=== PATIENT | male | born 1940 | race Caucasian/White ===

== ENCOUNTER → 2017-04-16 | Outpatient (CLI) | payer MEDICARE ==
[2017-04-16 09:05] LABS: Basophils % (A) 1 %; CH 31.4; CHCM 33.2; Eosinophils # (A) 0.1 k/uL (0-0.7); Eosinophils % (A) 3 %; HCT 41.3 % (39.0-53.0); HDW 2.34; HGB 13.5 gm/dL (13.0-17.5); Luc # (Auto) 0.07; Luc % (Auto) 2; Lymphocytes # (A) 1.6 k/uL (1.0-4.8); Lymphocytes % (A) 38 %; MCH 31.1 pg (25.0-35.0); MCHC 32.7 g/dL (31.0-37.0); MCV 95.1 fL (80.0-100.0); Mean Platelet Volume 7.5; Monocytes # (A) 0.2 k/uL (0-1.0); Monocytes % (A) 5 %; Neutrophils # (A) 2.2 k/uL (1.3-7.7); Neutrophils % (A) 52 %; RBC 4.34 m/uL (4.30-5.90); RDW 14.1 % (11.5-15.5); WBC 4.2 k/uL (3.8-10.6); WBC (Perox) 4.29
[2017-04-16 10:12] LABS: Erythrocyte Sedimentation Rate 7 mm/hr (0-15)
[2017-04-16 10:54] LABS: ALT 43 U/L (21-72); AST 39 U/L (17-59); Alkaline Phosphatase 69 U/L (38-126); Anion Gap 8 mmol/L; Blood Urea Nitrogen 17 mg/dL (9-20); C Reactive Protein <5.0 mg/L (<10.0); Calcium 9.6 mg/dL (8.4-10.2); Carbon Dioxide 30 mmol/L (22-30); Chloride 106 mmol/L (98-107); Glucose 90 mg/dL (74-99); Non-African American GFR(MDRD) >60 (>60 ml/min/1.73 sqM); Potassium 4.6 mmol/L (3.5-5.1); Sodium 144 mmol/L (137-145); Total Bilirubin 0.8 mg/dL (0.2-1.3); Total Protein 6.6 g/dL (6.3-8.2)
== END | disposition home or self-care (01) ==
LOC: LABWHC1 07:50
PROVIDERS: ATTEND Internal Medicine
DX: D64.9 Anemia, unspecified (principal); C15.9 Malignant neoplasm of esophagus, unspecified; E03.9 Hypothyroidism, unspecified; E16.2 Hypoglycemia, unspecified
CPT/HCPCS: 36415; 80053; 84439; 84443; 85025; 85652; 86140

== ENCOUNTER → 2017-04-17 | Outpatient (CLI) | payer MEDICARE ==
[2017-04-17 18:10] LABS: Blood Urea Nitrogen 16 mg/dL (9-20); Non-African American GFR(MDRD) >60 (>60 ml/min/1.73 sqM)
--- NOTE | 2017-04-18 08:21 | CT ---
EXAMINATION TYPE: CT abdomen w con DATE OF EXAM: 04/17/2017 COMPARISON: 07/14/2015 INDICATION: upper abdominal pain x1 month. Hx of esophageal CA. DLP: 328.6 mGycm, Automated exposure control for dose reduction was used. CONTRAST: 100 mL of Omnipaque 300. Study performed with Oral Contrast TECHNIQUE: Axial images were obtained from above the diaphragm to the pubic rami in the axial plane a t 5 mm thick sections. Reconstructed images are reviewed on the computer in the coronal plane. FINDINGS: Limited CT sections are obtained the lung bases. There is some streak opacity in the posterior later al right lung base likely on the basis of atelectasis. There appears to be a colonic interposition pa rtially visualized at the lung base. Coronary artery calcification is present.. CT ABDOMEN: Liver: There is a 0.7 cm hypodensity within the superior right lobe liver was present previously may represent hepatic cyst. Subtle hypodensity is within the posterior right lobe liver not clearly ident ified previously and is too small to classify on the current exam. There is an area of enhancement es timated at 1.0 x 2.9 cm in size. This area is smaller than the comparison of 3.0 x 1.7 cm. Spleen: Large calcification is within the spleen. 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 Pancreas: Slightly atrophic. Adrenal glands: The adrenal glands are normal. Gallbladder: Surgically absent Kidneys: No masses are evident. No hydronephrosis is present. There is a 4.1 cm superior right cezar l cyst. A superior pole left renal cyst measuring 2.6 cm is present. Punctate calcification may be w ithin the superior pole left kidney without evidence of obstruction. Delayed images were obtained th rough the kidneys, which remain unremarkable. Aorta: Vascular calcification is within the aorta. Inferior vena cava: Normal. CT PELVIS: Loops of bowel within the abdomen and pelvis are normal. There are loops of bowel which are incom pletely distended or lack oral contrast limiting their evaluation. IMPRESSIONS: 1. Renal cysts. 2. Stable calcified aneurysm within the spleen. 3. Subtle new hypodense density within the right lobe liver too small to classify. Additional hepatic findings appears similar or diminished in size from prior exam.
== END ==
LOC: RADCTMAIN 17:26
PROVIDERS: ATTEND Internal Medicine
DX: N28.1 Cyst of kidney, acquired (principal); I72.8 Aneurysm of other specified arteries
CPT/HCPCS: 82565; 84520; 74160; 36415; Q9967

== ENCOUNTER → 2017-05-20 | Outpatient (CLI) | payer MEDICARE ==
--- NOTE | 2017-05-20 17:46 | XR ---
EXAMINATION TYPE: XR sinus DATE OF EXAM: 05/20/2017 COMPARISON: NONE HISTORY: Headache TECHNIQUE: 5 views FINDINGS: There is fairly normal development and aeration of the paranasal sinuses. Sella turcica starla ears normal. Orbital margins are intact. Maxilla is intact. IMPRESSION: Normal paranasal sinuses exam.
== END | disposition home or self-care (01) ==
LOC: RADXRMAIN 16:39
PROVIDERS: ATTEND Internal Medicine
DX: J32.9 Chronic sinusitis, unspecified (principal); R51 Headache
CPT/HCPCS: 70220

== ENCOUNTER 2017-06-20 11:08 | Day surgery (SDC) | payer MEDICARE ==
[2017-06-19 12:21] VITALS: BMI 21.1
[~2017-06-20 11:08] MED LIST: LACTATED RINGERS 1,000 ML IV SCH
[2017-06-20 11:55] VITALS: RESP 16; TEMP 97.9
[2017-06-20] MEDS ORDERED: LIDOCAINE 1% 20 ML VIAL (10MG/ML) FOR IV START INTRADERMA ONE (12:04)
[2017-06-20 12:07] LABS: Glucose,Whole Blood 83 mg/dL (75-99)
[2017-06-20] MEDS ORDERED: PROPOFOL 10 MG/ML 20 ML VIAL IV ONE (12:40)
--- NOTE | 2017-06-20 12:50 | P.PCN ---
Date of Procedure: 06/20/17 Preoperative Diagnosis: Postoperative Diagnosis: Procedure(s) Performed: BRIEF HISTORY: Patient is a 76-year-old, pleasant, male, scheduled for an upper endoscopy as a part of evaluation of epigastric pain, early satiety and intermittent passive regurgitation for the last 4 months duration. 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 Because of the persistent symptoms he scheduled for an upper endoscopy to evaluate. PROCEDURE PERFORMED: Esophagogastroduodenoscopy with biopsy. PREOPERATIVE DIAGNOSIS: Epigastric pain, early satiety and nausea for 4 months duration. IV sedation per anesthesia. PROCEDURE: After informed consent was obtained, the patient was brought into the endoscopy unit. IV sedation was administered by Anesthesia under continuous monitoring. Initially the Olympus GIF-140 video endoscope was inserted into the mouth. Esophagus intubated without any difficulty. It was gradually advanced and the gastroesophageal anastomosis was located at 25 cm from the incisors. The scope was advanced into the stomach and duodenum. The bulb and the second part of the duodenum appeared normal. The scope at this time was withdrawn to the stomach, adequately insufflated with air, and upon careful examination, mucosa of the antrum had mild mottling of the mucosa and biopsies were done from this area. The, body appeared normal. The scope was then withdrawn into the esophagus. The GE anastomosis was located at 25 from the incisors. There was a superficial erosion with exudate noted just proximal to the anastomosis. The rest of the esophagus appeared normal and the patient tolerated the procedure well. IMPRESSION: 1. Superficial erosions at the gastroesophageal anastomosis consistent with reflux esophagitis. 2. Mild antral gastritis. 3. No evidence of gastroparesis RECOMMENDATIONS: The findings of this examination were discussed with the patient as well as his family. He was advised to follow with the biopsy results. Will try him on Zantac 150 minute grams twice daily and he'll be seen in the office in 4 weeks. Implants: Indications for Procedure: Operative Findings: Description of Procedure:
[2017-06-20 13:18] VITALS: BP 110/70; PULSE 49
== END 2017-06-20 13:27 | disposition home or self-care (01) ==
LOC: ORWHC2ENDO 11:08
PROVIDERS: ATTEND Internal Medicine Gastroenterology
DX: K29.50 Unspecified chronic gastritis without bleeding (principal); K22.10 Ulcer of esophagus without bleeding; K21.0 Gastro-esophageal reflux disease with esophagitis; R68.81 Early satiety; Z85.01 Personal history of malignant neoplasm of esophagus; Z90.49 Acquired absence of other specified parts of digestive tract; E07.9 Disorder of thyroid, unspecified; N42.9 Disorder of prostate, unspecified; F41.9 Anxiety disorder, unspecified; I25.10 Atherosclerotic heart disease of native coronary artery without angina pectoris; J44.9 Chronic obstructive pulmonary disease, unspecified; M19.90 Unspecified osteoarthritis, unspecified site; Z79.899 Other long term (current) drug therapy; Z88.5 Allergy status to narcotic agent; Z87.891 Personal history of nicotine dependence
CPT/HCPCS: 88305; 88342; 43239; J2704

== ENCOUNTER 2017-12-05 16:12 | Outpatient (CLI) | payer MEDICARE ==
--- NOTE | 2017-12-05 16:55 | XR ---
EXAMINATION TYPE: XR chest 2V DATE OF EXAM: 12/05/2017 COMPARISON: 01/12/2016 HISTORY: Cough TECHNIQUE: Frontal and lateral views of the chest are obtained. FINDINGS: There is no heart failure. There is some mild reticular infiltrate in the lateral right lo wer lobe. The other lung cooney are clear. Thoracic aorta is atheromatous. There are no hilar masses. There is no pleural effusion. Bony thorax is intact. IMPRESSION: Minimal reticular infiltrate in the right lower lobe is increased compared to old exam a nd could relate to fibrosis. Normal heart.
[2017-12-05 16:57] LABS: Basophils % (A) 0 %; Eosinophils # (A) 0.1 k/uL (0-0.7); Eosinophils % (A) 2 %; HCT 39.6 % (39.0-53.0); HGB 12.4 gm/dL (13.0-17.5); Lymphocytes # (A) 1.3 k/uL (1.0-4.8); Lymphocytes % (A) 19 %; MCH 30.8 pg (25.0-35.0); MCHC 31.2 g/dL (31.0-37.0); MCV 98.7 fL (80.0-100.0); Mean Platelet Volume 7.2; Monocytes # (A) 0.5 k/uL (0-1.0); Monocytes % (A) 7 %; Neutrophils % (A) 71 %; Platelet Count 230 k/uL (150-450); RBC 4.01 m/uL (4.30-5.90); RDW 13.9 % (11.5-15.5)
== END 2017-12-05 17:10 | disposition home or self-care (01) ==
LOC: PEDOP 16:12
PROVIDERS: ATTEND Internal Medicine
DX: J44.9 Chronic obstructive pulmonary disease, unspecified (principal); J12.9 Viral pneumonia, unspecified; J06.9 Acute upper respiratory infection, unspecified; J32.9 Chronic sinusitis, unspecified; R05 Cough
CPT/HCPCS: 85025; 87502; 71046; G0463; 99212

== ENCOUNTER → 2018-02-18 | Outpatient (CLI) | payer MEDICARE ==
[2018-02-18 12:46] LABS: Blood Urea Nitrogen 19 mg/dL (9-20)
--- NOTE | 2018-02-18 14:35 | CT ---
EXAMINATION TYPE: CT abdomen pelvis w con DATE OF EXAM: 02/18/2018 COMPARISON: 04/17/2017 HISTORY: Epigastric and generalized abdominal pain CT DLP: 569.2 mGycm Automated exposure control for dose reduction was used. CONTRAST: CT scan of the abdomen pelvis is performed with IV Contrast, patient injected with 100 mL of Isovue 3 00. FINDINGS- LUNG BASES-changes of COPD are noted. Subsegmental changes at the right lung base suggestive of atele ctasis. The heart is enlarged. LIVER/GB- There is a 0.7 cm hypodensity within the superior right lobe liver was present previously may represent hepatic cyst. Subtle hypodensity is within the posterior right lobe liver not clearly identified previously and is too small to classify on the current exam. There is an area of enhanceme nt estimated at 1.0 x 2.9 cm in size. This area is smaller than the comparison of 3.0 x 1.7 cm. PANCREAS- No gross abnormality is seen. SPLEEN- Large calcification is within the spleen. Stable calcified cyst is likely present. ADRENALS- No gross abnormality is seen. KIDNEYS/BLADDER- No masses are evident. No hydronephrosis is present. There is a 4.1 cm superior righ t renal cyst. A superior pole left renal cyst measuring 2.6 cm is present. Punctate calcification may be within the superior pole left kidney without evidence of obstruction. Delayed images were obtaine d through the kidneys, which remain unremarkable. Lateral wall is thickened. BOWEL-the bowel gas pattern is nonspecific with extensive retained fecal debris throughout the colon. No obstruction. Appears to be previous surgery involving the stomach and esophagus correlate clinica lly. This area is somewhat decompressed and limited in evaluation. LYMPH NODES- No greater than 1cm abdominal or pelvic lymph nodes are appreciated. OSSEOUS STRUCTURES-multilevel hypertrophic and degenerative disc disease with facet arthropathy. OTHER- atherosclerotic change of the vasculature. Prostate gland is prominent. IMPRESSION- 1. Stable nonspecific hepatic lesions unchanged from the prior exam. 2. Stable renal cysts. 3. Postsurgical changes 4. Assessment of the postsurgical area is somewhat limited due to incomplete distention. This could b e correlated with direct visualization or upper GI exam if clinically warranted. 5. Correlate for chronic cystitis diffuse bladder wall thickening.
== END | disposition home or self-care (01) ==
LOC: RADCTMAIN 12:01
PROVIDERS: ATTEND Internal Medicine Gastroenterology
DX: N28.1 Cyst of kidney, acquired (principal); R10.13 Epigastric pain; Z98.890 Other specified postprocedural states
CPT/HCPCS: 82565; 84520; 74177; 36415; Q9967

== ENCOUNTER → 2018-11-05 | Outpatient (CLI) | payer MEDICARE ==
--- NOTE | 2018-11-06 08:36 | XR ---
EXAMINATION TYPE: XR chest 2V DATE OF EXAM: 11/05/2018 COMPARISON: 12/05/2017 TECHNIQUE: PA and lateral views submitted. HISTORY: Pain FINDINGS: Atherosclerotic change aorta. Pleural-based thickening calcified nodule. Prominent interstitial maikol ngs at the lung bases likely reflect a degree of underlying interstitial lung disease. Calcification left upper quadrant is stable surgical clips in the region. Heart size normal. IMPRESSION: 1. COPD with suspected chronic interstitial lung disease. Suspect granuloma pleural apical thickening bilaterally. Findings are stable.
--- NOTE | 2018-11-06 08:42 | XR ---
EXAMINATION TYPE: XR ribs RT DATE OF EXAM: 11/05/2018 COMPARISON: NONE HISTORY: Pain TECHNIQUE: 4 views submitted FINDINGS: Arthropathy shoulders seen. Visualized lung cooney clear with slight deformity involving th e anterolateral margin the right ninth rib suspicious for minimally displaced fracture surgical clip s in the abdomen noted. IMPRESSION: 1. Findings are suggestive of a displaced fracture involving the anterolateral right ninth rib.
== END ==
LOC: RADXRMAIN 16:46
PROVIDERS: ATTEND Internal Medicine
DX: J44.9 Chronic obstructive pulmonary disease, unspecified (principal)
CPT/HCPCS: 71046

== ENCOUNTER → 2019-02-05 | Outpatient (CLI) | payer MEDICARE ==
--- NOTE | 2019-02-05 18:26 | CT ---
EXAMINATION TYPE: CT abdomen pelvis w con DATE OF EXAM: 02/05/2019 COMPARISON: 02/18/2018 INDICATION: abdominal pain and nausea, hx of esophageal ca DLP: 557.1 mGycm, Automated exposure control for dose reduction was used. CONTRAST: 100 mL of Isovue 300. Study performed with Oral Contrast TECHNIQUE: Axial images were obtained from above the diaphragm to the pubic rami in the axial plane a t 5 mm thick sections. Reconstructed images are reviewed on the computer in the coronal plane. FINDINGS: Limited CT sections are obtained the lung bases. There is a stable oval density within the posterior lateral right lung base.. CT ABDOMEN: There is a gastric pull-through. Contrast is within the intrathoracic portion of the stom ach. Liver: There is an area of enhancement measuring 3.5 x 1.7 cm which is stable from comparison. No add itional masses are evident. Couple of very tiny hypodensities are in the superior right lobe liver pr esent previously may be tiny hepatic cysts. Spleen: There is a stable rounded calcification within the mid spleen. Pancreas: Atrophic Adrenal glands: The adrenal glands are normal. Gallbladder: Surgically absent Kidneys: No masses are evident. No hydronephrosis is present. There is a cyst measuring 4.9 cm and 9 Hounsfield units in the superior right kidney the posterior superior renal cyst is on the left jose cruz suring 2 cm and 11 Hounsfield units Aorta: Vascular calcification is within the aorta. Inferior vena cava: Normal. CT PELVIS: Loops of bowel within the abdomen and pelvis are normal. There are loops of bowel which are incom pletely distended or lack oral contrast limiting their evaluation. Appendix: Not identified. No suspicious tubular structures are identified. Lack of fat makes evaluati on for inflammatory change difficult. Urinary bladder: Normal. Genitourinary structures: Prostate appears unremarkable Osseous structures: Sacroiliac joint degenerative changes are present. Degenerative disc changes are present L4-5 L5-S1 COMPARISON: Findings appear stable over the interval. No suspicious interval change to account for e patient's symptoms is evident. IMPRESSIONS: 1. Stable examination from March 08, 2018. No suspicious changes to suggest metastatic disease or samuels ge in disease. 2. Scattered findings including hepatic and renal findings appear stable.
== END | disposition home or self-care (01) ==
LOC: RADCTMAIN 14:50
PROVIDERS: ATTEND Internal Medicine Gastroenterology
DX: R10.13 Epigastric pain (principal)
CPT/HCPCS: 82565; 84520; 74177; 36415; Q9967

== ENCOUNTER → 2019-02-12 | Day surgery (SDC) | payer MEDICARE ==
[2019-02-09 09:43] VITALS: BMI 21.7
[~2019-02-12] MED LIST changes: +LIDOCAINE 1% 20 ML VIAL (10MG/ML) FOR IV START INTRADERMA ONE; +LIDOCAINE 1% INJ 10MG/ML (20 ML MDV) ONE; +PROPOFOL 10 MG/ML 20 ML VIAL IV ONE
[2019-02-12 09:33] VITALS: TEMP 97.3
--- NOTE | 2019-02-12 11:23 | P.PCN ---
Date of Procedure: 02/12/19 Procedure(s) Performed: Brief history: Patient is a pleasant 78-year-old white female, scheduled for an elective upper endoscopy as well as colonoscopy as a part of evaluation of epigastric pain, occasional dysphagia to solids and prior history of colon polyps.. He has history of esophageal cancer for which she underwent distal esophagectomy in June 2015. Procedure performed: Esophagogastroduodenoscopy with biopsy Colonoscopy Preoperative diagnosis: Epigastric pain, intermittent dysphagia to solids History of colon polyps Anesthesia: MAC Procedure: After informed consent was obtained from the patient was brought into the endoscopy unit and IV sedation was administered by anesthesia under continuous monitoring. Initially upper endoscopy was done. The Olympus GF 160 video endoscope was inserted inserted into the mouth and esophagus intubated without any difficulty. The gastric esophageal anastomosis was located at 25 cm from the incisors and was widely patent. The scope at this time was gradually advanced into the stomach and duodenum and carefully examined. The bulb and second part of the duodenum appeared normal. The scope was then withdrawn into the stomach adequately insufflated with air and upon careful examination the antrum had diffuse gastritis and biopsies were from this area. The body, cardia and fundus appeared normal. The scope was then withdrawn into the esophagus. The anastomosis was located at 25 cm from the incisors and it does ulcerations noted. In the proximal cervical esophagus at 18 cm from the anal verge there was an inlet patch noted which was also biopsied. Rest of the esophagus appeared normal. Patient tolerated the procedure well. At this time the patient continued to remain sedation. Initial digital rectal examination was normal. Olympus CF 160 video colonoscope was then inserted into the rectum and gradually advanced to the cecum without any difficulty. Careful examination was performed as the scope was gradually being withdrawn. The prep was poor and several areas of the colon and thorough irrigation was performed using irrigation system.e cecum, ascending colon, transverse colon, descending colon, sigmoid colon and rectum appeared normal. moderate Diverticulosis seen. Retroflexion was performed in the rectum and no lesions were noted. Patient tolerated the procedure well. Impression: 1. Upper endoscopy revealed circumferential ulcerations at the gastroesophageal anastomosis but no evidence of stricture 2. Colonoscopy revealed somewhat poor prep and several areas of colon but no evidence of colorectal neoplasia. Scattered small diverticulosis seen. Recommendations: Findings of this examination were discussed with the patient as well as his family. He was advised to follow with the biopsy results. He will start on Prilosec 20 mg daily and follow with the biopsy results.
[2019-02-12 11:27] VITALS: BP 115/62; PULSE 47; RESP 17
== END | disposition home or self-care (01) ==
LOC: ORWHC2ENDO 09:18
PROVIDERS: ATTEND Internal Medicine Gastroenterology
DX: Z12.11 Encounter for screening for malignant neoplasm of colon (principal); K29.50 Unspecified chronic gastritis without bleeding; K57.30 Diverticulosis of large intestine without perforation or abscess without bleeding; K21.0 Gastro-esophageal reflux disease with esophagitis; K22.10 Ulcer of esophagus without bleeding; J44.9 Chronic obstructive pulmonary disease, unspecified; I25.2 Old myocardial infarction; I25.10 Atherosclerotic heart disease of native coronary artery without angina pectoris; Z87.891 Personal history of nicotine dependence; Z86.010 Personal history of colon polyps; Z85.01 Personal history of malignant neoplasm of esophagus; Z79.890 Hormone replacement therapy; Z90.49 Acquired absence of other specified parts of digestive tract; Z79.899 Other long term (current) drug therapy; Z88.5 Allergy status to narcotic agent
CPT/HCPCS: 88305; 43239; J2001; J2704; G0105

== ENCOUNTER → 2019-05-14 | Outpatient (CLI) | payer MEDICARE ==
[2019-05-14 07:46] LABS: Basophils % (A) 1 %; Eosinophils # (A) 0.1 k/uL (0-0.7); Eosinophils % (A) 3 %; HGB 12.1 gm/dL (13.0-17.5); Lymphocytes # (A) 1.4 k/uL (1.0-4.8); Lymphocytes % (A) 35 %; MCH 30.3 pg (25.0-35.0); MCHC 31.9 g/dL (31.0-37.0); MCV 94.8 fL (80.0-100.0); Mean Platelet Volume 7.5; Monocytes # (A) 0.2 k/uL (0-1.0); Monocytes % (A) 5 %; Neutrophils # (A) 2.1 k/uL (1.3-7.7); Neutrophils % (A) 54 %; Platelet Count 184 k/uL (150-450); RDW 14.3 % (11.5-15.5); WBC 3.8 k/uL (3.8-10.6)
[2019-05-14 08:10] LABS: ALT 26 U/L (21-72); AST 30 U/L (17-59); African American GFR (CKD) >90 (>60 ml/min/1.73 sqM); Albumin 3.8 g/dL (3.5-5.0); Alkaline Phosphatase 62 U/L (38-126); Amylase 59 U/L (30-110); Anion Gap 3 mmol/L; Blood Urea Nitrogen 21 mg/dL (9-20); Calcium 9.1 mg/dL (8.4-10.2); Carbon Dioxide 30 mmol/L (22-30); Chloride 107 mmol/L (98-107); Glucose 91 mg/dL (74-99); Phosphorus 4.5 mg/dL (2.5-4.5); Potassium 4.6 mmol/L (3.5-5.1); Sodium 140 mmol/L (137-145); Total Bilirubin 0.5 mg/dL (0.2-1.3); Total Protein 6.3 g/dL (6.3-8.2)
--- NOTE | 2019-05-14 08:22 | US ---
EXAMINATION TYPE: US abdomen complete DATE OF EXAM: 05/14/2019 COMPARISON: 02/05/2019 CLINICAL HISTORY: R10.9 ABDOMINAL PAIN. Pain cholecystectomy. EXAM MEASUREMENTS: Liver Length: 15.1 cm Gallbladder Wall: Surgically absent cm CBD: 0.5 cm Spleen: 9.5 cm Right Kidney: 9.8 x 4.6 x 5.5 cm Left Kidney: 9.2 x 4.2 x 4.9 cm Pancreas: Obscured by bowel gas Liver: wnl Gallbladder: Surgically absent Evidence for sonographic Perez's sign: No CBD: wnl Spleen: Calcification seen measuring 2.2cm. Right Kidney: Cystic area seen upper pole 4.4 x 4.2 x 4.7cm. No internal complexity. Left Kidney: Cystic area seen upper pole 2.3 x 1.6 x 1.8cm. No internal complexity. Upper IVC: wnl Abd Aorta: Proximal obscured by bowel gas areas visualized wnl. The liver is homogenous. The intrahepatic portion of the IVC and proximal abdominal aorta are within normal limits. Common bile duct is unremarkable. Kidneys are symmetric and free of hydronephrosis. IMPRESSION: 1. Bilateral renal cysts appear simple and benign. 2. Curvilinear splenic calcification also appears benign. 3. Surgical absence of the gallbladder. 4. Obscuration the pancreas and proximal aorta by overlying bowel gas.
[2019-05-14 10:14] LABS: C Reactive Protein <5.0 mg/L (<10.0)
[2019-05-14 12:10] LABS: Folate, Serum 12.7 ng/mL
== END | disposition home or self-care (01) ==
LOC: RADUSWWP 06:59
PROVIDERS: ATTEND Internal Medicine
DX: N28.1 Cyst of kidney, acquired (principal); D73.89 Other diseases of spleen; Z88.5 Allergy status to narcotic agent; Z90.49 Acquired absence of other specified parts of digestive tract
CPT/HCPCS: 76700; 80053; 82150; 82607; 82746; 83690; 83735; 84100; 85025; 86140

== ENCOUNTER → 2020-06-12 | Outpatient (CLI) | payer MEDICARE ==
--- NOTE | 2020-06-13 08:23 | MR ---
EXAMINATION TYPE: MR pancreas wo/w con DATE OF EXAM: 06/12/2020 COMPARISON: Outside CT May 18, 2020 and older CTs back through 2014 HISTORY: Abnormal CT, cystic lesion of pancreas. CONTRAST: Standard multiplanar, multisequence MRI departmental protocol utilizing 7 mL intravenous Gadavist abdias olinium contrast. FINDINGS: Patient has virtually no intra-abdominal fat making evaluation suboptimal. Pancreas: Pancreas poorly seen due to lack of internal fat. In the mid to distal body there is redemo nstration of a slightly lobulated T2 hyperintense lesion measuring 1.5 x 0.9 cm seen best series 601 image 23 that may have been first identified on the February 18, 2018 CT in retrospect, not clearly seen on older studies back through 2014. It appears to continue to Slightly increase in size from 2018. Dynamic postcontrast imaging shows no convincing evidence of enh ancement the lesion is not well identified and likely is present near image 398 series 801 for refere nce and best seen image 400 series 801. Pancreatic duct is seen proximal to this without dilatation s imilar to prior studies. The distal body and tail show mild generalized atrophy seen better on CT jackson jelena MRI. MRI suboptimal as patient unable to hold breath. Other: There are a few tiny thin-walled cysts scattered throughout the visualized liver. Gallbladder noted surgically absent. There is stable 2.1 cm rim calcified lesion in the spleen presumably benign. There is nearly 4.0 cm thin-walled cyst within. The partially exophytic from the upper pole of right kidney redemonstrated. No suspicious enhancement noted. Occasional tiny subcentimeter cyst is scatte red throughout remainder of both kidneys. No suspicious bowel dilatation. Large hemangioma involving the T3 vertebra redemonstrated. Multilevel spurring in the spine seen. IMPRESSION: Enlarging 1.5 cm cystic lesion mid to distal body of pancreas. Differential includes cyst ic neoplasm, IPMN, and pancreatic pseudocyst. Correlate clinically and with pancreatic lab markers. A t minimal annual imaging surveillance is advised.
== END | disposition home or self-care (01) ==
LOC: RADMRIMAIN 17:09
PROVIDERS: ATTEND Internal Medicine Gastroenterology
DX: K86.2 Cyst of pancreas (principal)
CPT/HCPCS: 74183; A9585

== ENCOUNTER → 2020-11-17 | Outpatient (CLI) | payer MEDICARE ==
--- NOTE | 2020-11-18 00:25 | MR ---
EXAMINATION TYPE: MR brain wo/w con DATE OF EXAM: 11/17/2020 COMPARISON: 07/22/2016 HISTORY: Hx Brain Tumor and Brain surgery in 2016 CONTRAST: Standard multiplanar, multisequence MRI departmental protocol utilizing 7.5 mL intravenous Gadavist g adolinium contrast. There is cerebral cortical atrophy. There is no mass effect nor midline shift. The diffusion images s how no evidence of an acute cortical infarct. There is grade white matter increased signal on the T2 images in the right posterior parietal lobe consistent with old encephalomalacia. This measures 3 x 2 cm. There is patchy abnormal increased signal at the reyes-white matter junction of both cerebral hem ispheres. There are numerous foci that measure up to 1 cm and the total number is approximately 25. M ost of these lesions are less than 5 mm. The carpus callosum appears intact. There is no evidence of posterior fossa mass. Cerebellum is intact. Contrast images show no pathologic enhancement. There is normal enhancement of the venous sinuses. 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 Cerebral atrophy unchanged. White matte r lesions at the subcortical Cerebral hemispheres unchanged. No sign of recurrent tumor in this isabelle ent with a history of brain tumor. No evidence of brain abscess.
== END | disposition home or self-care (01) ==
LOC: RADMRIMAIN 17:58
PROVIDERS: ATTEND Psychiatry & Neurology Neurology
DX: G31.9 Degenerative disease of nervous system, unspecified (principal); G93.89 Other specified disorders of brain; C71.9 Malignant neoplasm of brain, unspecified
CPT/HCPCS: 70553; A9585

== ENCOUNTER → 2021-03-17 | Outpatient (CLI) | payer MEDICARE ==
--- NOTE | 2021-03-18 05:41 | MR ---
EXAMINATION TYPE: MR MRCP DATE OF EXAM: 03/17/2021 COMPARISON: 06/12/2020 HISTORY: pancreatic cyst Multiplanar multiecho images of the abdomen was performed without contrast. There are MRCP images. There are scattered rounded high signal foci on the T2 images in the liver consistent with multiple s mall cysts. These measure up to 9 mm. Spleen has normal size. There is rounded area of mixed signal i n the spleen measuring 2.5 cm. There is a ring of calcification and this is not changed in size beatriz red to old CT scan of 05/18/2020. There are bilateral renal cortical cysts and the largest measures 4. 8 cm on the upper pole right kidney. There is no hydronephrosis. There are 2 small cysts in the body of the pancreas that measure 7 mm. I see no dilated ducts. The co mmon bile duct measures 6.5 mm. I see no evidence of filling defect. Gallbladder is absent. Pancreati c duct is not dilated. There is normal enhancement of the portal venous system. There is no pathologi c enhancement. There is no ascites. There is no evidence of pleural effusion. IMPRESSION: Hepatic and renal cysts. No dilated ducts. There are 2 small cysts adjacent to each other in the body of the pancreas without change compared to old MR scan. No suspicious pancreatic mass.
== END | disposition home or self-care (01) ==
LOC: RADMRIMAIN 10:28
PROVIDERS: ATTEND Physician Assistant
DX: N28.1 Cyst of kidney, acquired (principal); K86.2 Cyst of pancreas; K76.89 Other specified diseases of liver
CPT/HCPCS: 74181

== ENCOUNTER → 2021-04-18 | Outpatient (CLI) | payer MEDICARE ==
--- NOTE | 2021-04-18 13:47 | XR ---
EXAMINATION TYPE: XR chest 2V DATE OF EXAM: 04/18/2021 COMPARISON: 11/05/2018 TECHNIQUE: PA and lateral views submitted. HISTORY: Shortness of breath FINDINGS: The lungs are clear and there is no pneumothorax, pleural effusion, or focal pneumonia. Calcificati ons in the left upper lobe laterally. Question of a hiatal hernia. Surgical clips in the abdomen. Hyp ertrophic and degenerative change of the spine. Hyperinflation suggests COPD. Diffuse osteopenia with arthropathy of the shoulders. Large calcification left upper quadrant is noted by previous CAT scan to be a calcified splenic lesion. IMPRESSION: 1. No acute process. Correlate for COPD.
[2021-04-18 18:53] LABS: Basophils # (A) 0.03 X 10*3/uL (0.00-0.10); Basophils % (A) 0.6 %; Eosinophils # (A) 0.17 X 10*3/uL (0.04-0.35); Eosinophils % (A) 3.4 %; HCT 37.2 % (39.6-50.0); HGB 11.9 g/dL (13.0-17.0); Lymphocytes # (A) 1.19 X 10*3/uL (0.90-5.00); Lymphocytes % (A) 23.8 %; MCH 30.7 pg (27.0-32.0); MCV 96.1 fL (80.0-97.0); Mean Platelet Volume 11.8 fL (9.5-12.2); Monocytes # (A) 0.35 X 10*3/uL (0.20-1.00); Neutrophils # (A) 3.26 X 10*3/uL (1.80-7.70); Neutrophils % (A) 65.2 %; Platelet Count 182 X 10*3/uL (140-440); RBC 3.87 X 10*6/uL (4.40-5.60); RDW 14.9 % (11.5-14.5)
== END | disposition home or self-care (01) ==
LOC: LABWHC1 13:02
PROVIDERS: ATTEND Internal Medicine
DX: J44.9 Chronic obstructive pulmonary disease, unspecified (principal)
CPT/HCPCS: 36415; 71046; 85025

== ENCOUNTER → 2021-04-19 | Outpatient (CLI) | payer MEDICARE ==
[2021-04-19 16:45] LABS: ALT 19 U/L (10-49); AST 31 U/L (14-35); African American GFR (CKD) 96.4 (60.0-200.0); Albumin/Globulin Ratio 1.86 (1.60-3.17); Alkaline Phosphatase 67 U/L (41-126); BUN/Creat Ratio 28.75 Ratio (12.00-20.00); C Reactive Protein <0.4 mg/dL (0.0-0.8); Calcium 8.8 mg/dL (8.7-10.3); Carbon Dioxide 26.9 mmol/L (21.6-31.8); Chloride 110 mmol/L (96-109); Chol/HDL Ratio 2.37; Cholesterol 159 mg/dL (0-200); Creatine Kinase 178 U/L (35-257); Globulin 2.1 g/dL (1.6-3.3); Glucose 89 mg/dL (70-110); LDL Cholesterol,Calculated 81.4 mg/dL (0.0-131.0); Non-African American GFR(CKD) 83.2 (60.0-200.0); Potassium 4.5 mmol/L (3.5-5.5); Sodium 142 mmol/L (135-145); Total Bilirubin 0.6 mg/dL (0.2-1.2)
== END | disposition home or self-care (01) ==
LOC: LABWHC1 08:37
PROVIDERS: ATTEND Internal Medicine
DX: C15.5 Malignant neoplasm of lower third of esophagus (principal); E78.5 Hyperlipidemia, unspecified; J44.9 Chronic obstructive pulmonary disease, unspecified
CPT/HCPCS: 36415; 80053; 80061; 82550; 85652; 86140

== ENCOUNTER → 2021-05-21 | Outpatient (CLI) | payer MEDICARE ==
[2021-05-21 14:24] LABS: African American GFR (CKD) >90 (>60 ml/min/1.73 sqM); Blood Urea Nitrogen 22 mg/dL (9-20); Non-African American GFR(CKD) 84 (>60 ml/min/1.73 sqM)
--- NOTE | 2021-05-21 16:56 | CT ---
EXAMINATION TYPE: CT abdomen pelvis w con DATE OF EXAM: 05/21/2021 COMPARISON: 02/05/2019 INDICATION: RLQ pain DLP: 1027 mGycm, Automated exposure control for dose reduction was used. CONTRAST: 100 mL of Isovue 300. Study performed with Oral Contrast TECHNIQUE: Axial images were obtained from above the diaphragm to the pubic rami in the axial plane a t 5 mm thick sections. Reconstructed images are reviewed on the computer in the coronal plane. FINDINGS: Limited CT sections are obtained the lung bases. There is a moderate size hiatal hernia or gastric p ull-through. Some streak opacities in the posterior lateral right lung base present previously. This currently has a transverse dimension 0.8 cm which is essentially stable from comparison. CT ABDOMEN: Liver: A 2.2 x 1.0 cm area of enhancement within the right lobe liver may be a hemangioma. Series 3 i mage 24. This area appears homogenous on delayed images. There are scattered tiny hypodensities withi n the liver likely related to hepatic cysts. Spleen: There is a 2.6 cm splenic aneurysm present previously. Pancreas: Atrophic Adrenal glands: The adrenal glands are normal. Gallbladder: Surgically absent Kidneys: No masses are evident. No hydronephrosis is present. There is a 4.8 cm cyst measuring 4 Ho unsfield units in the superior pole right kidney. There is a 0.3 cm nonobstructing renal stone in the superior pole left kidney. The superior pole left renal cyst measuring 2.0 cm and 13 Hounsfield uni ts is present. Delayed images were obtained through the kidneys. Small cortical renal cysts are at i nferior pole right kidney. Aorta: Vascular calcification is within the aorta. Fusiform prominence of the mid abdominal aorta me asures 2.5 cm. Inferior vena cava: Normal. CT PELVIS: Loops of bowel within the abdomen and pelvis are normal. Fecal debris is seen in the colon. There are loops of bowel which are incompletely distended or lack oral contrast limiting their evaluation. Appendix: Not identified. No dilated tubular structure or inflammatory changes are evident. Urinary bladder: May have diffusely thickened wall. Genitourinary structures: Mildly prominent Osseous structures: No suspicious lytic or sclerotic lesions. Degenerative changes within the lumbar spine are noted. Degenerative disc changes are present. IMPRESSIONS: 1. Hepatic and renal cysts. 2. Suspected hemangioma within the liver. 3. Nonobstructing renal stone left kidney. 4. Mild fecal retention. 5. Stable splenic aneurysm. 6. Minimal fusiform prominence mid abdominal aorta with AP diameter of 2.5 cm. 7. Urinary bladder may have a diffusely thickened wall. Consider additional workup.
== END | disposition home or self-care (01) ==
LOC: RADCTMAIN 13:27
PROVIDERS: ATTEND Internal Medicine
DX: N20.0 Calculus of kidney (principal); N28.1 Cyst of kidney, acquired; K76.89 Other specified diseases of liver; I72.8 Aneurysm of other specified arteries
CPT/HCPCS: 82565; 84520; 74177; 36415; Q9967

== ENCOUNTER → 2021-06-28 | Outpatient (CLI) | payer MEDICARE ==
--- NOTE | 2021-06-28 15:39 | XR ---
EXAMINATION TYPE: XR chest 2V DATE OF EXAM: 06/28/2021 COMPARISON: 04/18/2021 TECHNIQUE: PA and lateral views submitted. HISTORY: Shortness of breath FINDINGS: The lungs are clear and there is no pneumothorax, pleural effusion, or focal pneumonia. Hyperinflat ion compatible COPD. Biapical pleural thickening. Calcification involving the left upper lobe likely related to granuloma. Atherosclerotic change aorta. Degenerative change of the spine with scoliosis. IMPRESSION: 1. No acute process. Correlate for COPD.
== END | disposition home or self-care (01) ==
LOC: RADXRWHC 14:44
PROVIDERS: ATTEND Internal Medicine
DX: R06.02 Shortness of breath (principal)
CPT/HCPCS: 71046

== ENCOUNTER → 2021-07-06 | Outpatient (CLI) | payer MEDICARE ==
[2021-07-06 23:11] LABS: Basophils # (A) 0.04 X 10*3/uL (0.00-0.10); Basophils % (A) 0.9 %; Eosinophils # (A) 0.09 X 10*3/uL (0.04-0.35); Eosinophils % (A) 1.9 %; HCT 36.5 % (39.6-50.0); HGB 11.6 g/dL (13.0-17.0); Lymphocytes # (A) 1.27 X 10*3/uL (0.90-5.00); Lymphocytes % (A) 27.3 %; MCH 30.4 pg (27.0-32.0); MCHC 31.8 g/dL (32.0-37.0); MCV 95.8 fL (80.0-97.0); Mean Platelet Volume 11.9 fL (9.5-12.2); Monocytes # (A) 0.31 X 10*3/uL (0.20-1.00); Monocytes % (A) 6.7 %; Neutrophils # (A) 2.93 X 10*3/uL (1.80-7.70); Platelet Count 188 X 10*3/uL (140-440); RBC 3.81 X 10*6/uL (4.40-5.60); RDW 14.3 % (11.5-14.5); WBC 4.65 X 10*3/uL (4.50-10.00)
[2021-07-07 17:11] LABS: African American GFR (CKD) 80.9 (60.0-200.0); Albumin/Globulin Ratio 1.82 (1.60-3.17); Anion Gap 13.7 mmol/L (4.00-12.00); Carbon Dioxide 21.3 mmol/L (21.6-31.8); Globulin 2.2 g/dL (1.6-3.3); Non-African American GFR(CKD) 69.8 (60.0-200.0); Potassium 4.5 mmol/L (3.5-5.5); Total Bilirubin 0.5 mg/dL (0.2-1.2); Total Protein 6.2 g/dL (6.2-8.2)
[2021-07-07 17:17] LABS: T4, Free (Free Thyroxine) 1.3 ng/dL (0.80-1.80)
== END | disposition home or self-care (01) ==
LOC: LABWHC1 15:01
PROVIDERS: ATTEND Internal Medicine Critical Care Medicine
DX: R06.09 Other forms of dyspnea (principal)
CPT/HCPCS: 36415; 80053; 82550; 84439; 84443; 85025

== ENCOUNTER → 2021-07-23 | Outpatient (CLI) | payer MEDICARE ==
[2021-07-23 13:23] LABS: African American GFR (CKD) >90 (>60 ml/min/1.73 sqM); Blood Urea Nitrogen 18 mg/dL (9-20); Non-African American GFR(CKD) 84 (>60 ml/min/1.73 sqM)
--- NOTE | 2021-07-23 15:01 | CT ---
EXAMINATION TYPE: CT chest w con DATE OF EXAM: 07/23/2021 COMPARISON: Chest CT July 14, 2015 HISTORY: Dyspnea on exertion. CT DLP: 360 mGycm. Automated Exposure Control for Dose Reduction was Utilized. TECHNIQUE: CT scan of the thorax is performed following with IV Contrast, patient injected with 100 mL of Isovue 300. FINDINGS: LUNGS: Moderate underlying emphysematous changes are redemonstrated. There is [id number] periph eral reticulation and/or fibrosis on current study new from 2015 exam. [id number] basilar right peripheral fibrotic changes. No suspicious new Greater than 5 mm noncalcified pulmonary nodules or masses. No pleural effusion or pneumothorax seen bilaterally. MEDIASTINUM: There are no new greater than 1 cm hilar or mediastinal lymph nodes. No cardiomegaly o r pericardial effusion is seen. Prominent right and left pulmonary arteries consistent with underlyi ng pulmonary artery hypertension. Ascending aorta measures up to 3.5 cm in diameter. Coronary artery calcification is redemonstrated. There are surgical changes from interval total esophagectomy and gas tric pull-up procedure. OTHER: Cholecystectomy clips are redemonstrated. Stable 2.4 cm rim calcified low dense lesion in the spleen. . Simple appearing thin-walled cysts throughout visualized portion upper pole of both kidneys are redemonstrated. Scattered subcentimeter hypodense lesions throughout the liver are presumed hina gn. There is ovoid 2.4 x 1.4 cm hyperdense lesion axial image 64 which is stable presumed benign give n six-year stability. IMPRESSION: Moderate emphysematous changes are redemonstrated. Mild to moderate peripheral fibrotic c hange noted new from 2015 CT. No acute pulmonary process is evident.
== END | disposition home or self-care (01) ==
LOC: RADCTMAIN 12:17
PROVIDERS: ATTEND Internal Medicine Critical Care Medicine
DX: J98.4 Other disorders of lung (principal)
CPT/HCPCS: 82565; 84520; 71260; 36415; Q9967

== ENCOUNTER → 2021-09-24 | Outpatient (CLI) | payer MEDICARE | END | disposition home or self-care (01) | LOC: LABWHC1 12:42 | PROVIDERS: ATTEND Internal Medicine | DX: Z20.822 Contact with and (suspected) exposure to COVID-19 (principal) | CPT/HCPCS: U0003; C9803 ==

== ENCOUNTER → 2022-01-02 | Outpatient (CLI) | payer MEDICARE ==
--- NOTE | 2022-01-03 07:01 | MR ---
EXAMINATION TYPE: MR knee LT wo con DATE OF EXAM: 01/02/2022 COMPARISON: None. HISTORY: Lt knee pain and swelling TECHNIQUE: Multiplanar, multisequence imaging of the left knee is performed without IV contrast. FINDINGS: MEDIAL MENISCUS: Abnormal signal with fraying and displaced tear central body of the medial meniscus. LATERAL MENISCUS: Anterior and posterior horns are intact without tear. CRUCIATE LIGAMENTS: The anterior and posterior cruciate ligaments are intact and unremarkable. COLLATERAL LIGAMENTS: The medial collateral ligament and lateral collateral ligament complex are inta ct and unremarkable. EXTENSOR MECHANISM: Visualized quadriceps and patellar tendons are intact. EFFUSION: There is a moderate size nonsimple suprapatellar joint effusion. POPLITEAL CYST: Moderate to large sized septated popliteal/finnegan cyst with adjacent fluid or leak no milton. TRICOMPARTMENT SPACES: Moderate to severe tricompartmental joint space narrowing and moderate spurrin g CARTILAGE: Chondromalacia patella with thinning of articular cartilage along the posterior patellar p ole. Tricompartment cartilaginous loss is seen. Full-thickness loss medially is evident. BONE MARROW SIGNAL: Areas of heterogeneous increased T2 signal medial aspect distal medial femoral co ndyle and small areas of involvement along the posterior patellar pole. OTHER: No additional significant abnormality is appreciated. IMPRESSION: 1. Moderate to advanced tricompartment degenerative changes in the left knee as detailed above. 2. Large displaced tear through the central body of the medial meniscus. 3. Moderate to large size leaking septated popliteal cyst. 4. Moderate size suprapatellar joint effusion with suggestion of underlying synovitis.
== END | disposition home or self-care (01) ==
LOC: RADMRIMAIN 09:32
PROVIDERS: ATTEND Orthopaedic Surgery Sports Medicine
DX: M17.12 Unilateral primary osteoarthritis, left knee (principal); M25.462 Effusion, left knee; M71.22 Synovial cyst of popliteal space [Baker], left knee; M23.332 Other meniscus derangements, other medial meniscus, left knee

== ENCOUNTER → 2022-01-14 | Outpatient (CLI) | payer MEDICARE ==
[2022-01-14 08:52] LABS: African American GFR (CKD) >90 (>60 ml/min/1.73 sqM); Blood Urea Nitrogen 18 mg/dL (9-20); Non-African American GFR(CKD) 81 (>60 ml/min/1.73 sqM)
--- NOTE | 2022-01-14 10:10 | CT ---
EXAMINATION TYPE: CT urogram wo/w con DATE OF EXAM: 01/14/2022 INDICATION: Blood clots in urine and pelvic pain. History of esophageal cancer. CT DLP: 1256.2 mGy.cm Automated Exposure Control for Dose Reduction was Utilized. TECHNIQUE AND CONTRAST: CT scan of the abdomen and pelvis is performed without and with IV Contrast, as per CT urogram protoc ol. The patient injected with 100ml mL of Isovue 300. 3-D reconstruction images were generated on an independent workstation and reviewed. COMPARISON: CT dated 05/21/2021 FINDINGS: 4 mm nonobstructing calculus is seen at the upper pole of the left kidney. No other definite radioden se renal, ureteric or urinary bladder calculi. No hydroureter or hydronephrosis. Stable left upper re nal pole irregular cyst with marginal calcification measuring 3 cm, unchanged since April 2020 CT scan . Subtle 6 mm left lower renal pole cyst compared to 5 mm in April [address] scan. Scattered right simpl e renal cysts without suspicious feature. Unremarkable kidneys otherwise. No definite filling defect is seen within the renal collecting system or the opacified portion of the uterus. Most of the ureters are not opacified, a small ureteric lesion in the unopacified portion of the ureters cannot be excluded. Diffusely thickened urinary bladder wall, underlying lesion or chron ic cystitis cannot be excluded. Prominent prostate. Stable wedge shaped hyperenhancement in segment 5 of the liver, likely representing a form of communi cation between the portal vein and hepatic vein. Scattered tiny hepatic cysts, appreciated previously . The liver is suboptimally assessed due to arterial and delayed imaging phases. Previous cholecystec zoie. 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 Atrophic pancreas. S table pancreatic body cyst measuring up to 14 mm. Unremarkable adrenals. Extensive arterial atheroscl erotic calcifications. Infrarenal aortic ectasia measuring up to 2.6 cm. Suspected previous gastric pull-up surgery. No evidence of bowel obstruction with suboptimal assessme nt of the small bowel. Colonic diverticulosis with fecal loading of the colon and thickened sigmoid c olon. It is not possible to exclude colonic lesion by this CT scan. Please correlate with colonoscopy results. No suspicious lymphadenopathy or sizable ascites. Bilateral basal pulmonary reticulations a nd minimal fibrotic changes. Cardiomegaly. Degenerative changes of the lower lumbar spine. Osteopenia . IMPRESSION: 4 mm left upper pole nonobstructing renal calculus. No suspicious renal lesion identified. No hydrour eter or hydronephrosis. It is not possible to exclude a small urothelial lesion in the urinary bladder or the unopacified por tions of the ureters. Thickened urinary bladder wall, please correlate with urinalysis results and cytology. Further cystos copy can be considered. Other multiple incidental findings as detailed above.
== END | disposition home or self-care (01) ==
LOC: RADCTMAIN 07:50
PROVIDERS: ATTEND Urology
DX: N20.0 Calculus of kidney (principal); Z85.01 Personal history of malignant neoplasm of esophagus
CPT/HCPCS: 82565; 84520; 74178; 36415; 74400; Q9967

== ENCOUNTER → 2022-04-01 | Outpatient (CLI) | payer MEDICARE ==
--- NOTE | 2022-04-02 04:29 | MR ---
EXAMINATION TYPE: MR abdomen wo/w con DATE OF EXAM: 04/01/2022 COMPARISON: 06/12/2020 HISTORY: Abdominal pain. CONTRAST: Standard multiplanar, multisequence MRI departmental protocol images were obtained without contrast a nd with 7.5 mL intravenous Gadavist gadolinium contrast. Lung bases are clear of consolidation. No pleural effusion. Heart size is fairly normal. No pericardi al effusion. Liver appears intact. There is 1 cm cysts posterior right lobe of the liver. There is a single 1.5 cm cyst in the mid right lobe of the liver. There are scattered tiny cysts in the anterior liver. The b ile ducts are not dilated. Spleen has normal size. There is 2.3 cm rounded mixed signal focus in the spleen is likely an old hemorrhage. Gallbladder appears absent. There is a thin-walled 15 mm cyst in the body of the pancreas. I see no evidence of a solid pancreati c mass. There is no adrenal mass. There are bilateral renal cortical cysts that measure up to 4.5 cm. There is no ascites. No sign of a bowel obstruction. No retroperitoneal adenopathy. The contrast images show normal renal enhancement. There is normal enhancement of the portal venous s ystem. No thrombosis. There is irregular area of enhancement in the anterior right lobe of the liver measuring 3 x 1 cm and consistent with hemangioma. No pathologic pancreatic enhancement. IMPRESSION: Cyst in the body of the pancreas without significant change and consistent with a pseudocyst. No susp icious pancreatic lesion. Multiple hepatic and renal cysts. Small hemangioma in the anterior right lobe of the liver. Mixed sig nal splenic lesion consistent with a hemorrhagic cyst that is unchanged.
== END | disposition home or self-care (01) ==
LOC: RADMRIMAIN 15:31
PROVIDERS: ATTEND Internal Medicine Gastroenterology
DX: K86.2 Cyst of pancreas (principal); N28.1 Cyst of kidney, acquired
CPT/HCPCS: 74183; A9585

== ENCOUNTER 2022-10-25 17:01 | Inpatient (IN) | payer MEDICARE ==
[2022-10-25] MEDS ORDERED: DILTIAZEM DRIP BOLUS FROM BAG 1 MG SOLN IV ONE (19:26)
[2022-10-25 19:38] LABS: Basophils % (A) 1 %; Eosinophils # (A) 0.1 k/uL (0-0.7); Eosinophils % (A) 2 %; HCT 38.3 % (39.0-53.0); HGB 12.7 gm/dL (13.0-17.5); Lymphocytes # (A) 1.5 k/uL (1.0-4.8); Lymphocytes % (A) 26 %; MCH 30.9 pg (25.0-35.0); MCV 93.6 fL (80.0-100.0); Mean Platelet Volume 8.3; Monocytes # (A) 0.3 k/uL (0-1.0); Monocytes % (A) 6 %; Neutrophils # (A) 3.7 k/uL (1.3-7.7); Neutrophils % (A) 64 %; Platelet Count 216 k/uL (150-450); RDW 14.3 % (11.5-15.5); WBC 5.7 k/uL (3.8-10.6)
[2022-10-25 19:48] LABS: ALT 19 U/L (4-49); AST 31 U/L (17-59); African American GFR (CKD) >90 (>60 ml/min/1.73 sqM); Albumin 3.9 g/dL (3.5-5.0); Alkaline Phosphatase 68 U/L (38-126); Anion Gap 4 mmol/L; Blood Urea Nitrogen 21 mg/dL (9-20); Calcium 8.9 mg/dL (8.4-10.2); Carbon Dioxide 28 mmol/L (22-30); Chloride 108 mmol/L (98-107); Glucose 114 mg/dL (74-99); Magnesium 2.1 mg/dL (1.6-2.3); Non-African American GFR(CKD) 83 (>60 ml/min/1.73 sqM); Potassium 4.9 mmol/L (3.5-5.1); Sodium 140 mmol/L (137-145); Total Bilirubin 0.3 mg/dL (0.2-1.3); Total Protein 6.5 g/dL (6.3-8.2)
[2022-10-25 19:53] LABS: INR 0.9 (<1.2); Partial Thromboplastin Time 22.6 sec (22.0-30.0); Prothrombin Time 9.9 sec (9.0-12.0)
[2022-10-25] MEDS: DILTIAZEM 125 MG in SODIUM CHLORIDE 0.9% 100 ML IV SCH (19:53)
--- NOTE | 2022-10-25 20:05 | ED ---
General Adult HPI - General Chief complaint: Arrhythmia/Palpitations Stated complaint: tachycardia - sent by logistics team leader Time Seen by Provider: 10/25/22 19:15 Source: patient Mode of arrival: ambulatory Limitations: no limitations - History of Present Illness Initial comments: 81-year-old male with past history of bladder cancer presents to the emergency department from the cardiology office. He reports to exertional shortness of breath. He went into [facility] yesterday. He was found to have a flutter versus SVT per their records. Laboratory studies were conducted and the patient is CT of his chest to rule out PE. There is no PE. Patient was discharged AGAINST MEDICAL ADVICE. He followed up with Dr. mina on and office today. Dr. Castellanos found him to be in a flutter with a rapid rate. He recommended going into the hospital for admission. Recommended Cardizem and heparin drip. Patient denies any chest pain. Does have underlying cardiac disease. 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 - Related Data Home Medications Medication Instructions Recorded Confirmed Sertraline [Zoloft] 50 mg PO HS 06/20/15 10/25/22 Tamsulosin [Flomax] 0.4 mg PO BID 06/20/15 10/25/22 Multivitamins, Thera [Multivitamin 1 tab PO DAILY 06/19/17 10/25/22 (formulary)] Previous Rx's Medication Instructions Recorded Amiodarone [Cordarone] 200 mg PO BID #180 tab 10/29/22 Levothyroxine Sodium [Synthroid] 125 mcg PO DAILY@0700 #30 tab 10/29/22 Multivitamins, Thera [Multivitamin 1 each PO DAILY tab 10/29/22 (formulary)] Rivaroxaban [Xarelto] 20 mg PO DAILY@1700 #30 tab 10/29/22 Allergies Allergy/AdvReac Type Severity Reaction Status Date / Time morphine Allergy Hallucinati Verified 10/25/22 21:06 ons Review of Systems ROS Statement: Those systems with pertinent positive or pertinent negative responses have been documented in the HPI. ROS Other: All systems not noted in ROS Statement are negative. 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 , OCCASIONAL GERD., CURRENTLY HAVING PAIN AFTER EATING AND NAUSEA.states did not have mrsa Last Myocardial Infarction Date:: 2007 History of Any Multi-Drug Resistant Organisms: MRSA Date of last positivie culture/infection: 1997 MDRO Source:: POST -OP THYROID Past Surgical History: Cholecystectomy, Heart Catheterization With Stent, Hernia Repair Additional Past Surgical History / Comment(s): THYROIDECTOMY (X2 SURGERIES), ESOPHOGECTOMY (JUL 2015) , BRAIN LESION (OCT 2015). COLONOSCOPY Past Anesthesia/Blood Transfusion Reactions: No Reported Reaction Date of Last Stent Placement:: 2007 Past Psychological History: Anxiety Past Alcohol Use History: None Reported Past Drug Use History: None Reported - Past Family History Father Family Medical History: Cancer Additional Family Medical History / Comment(s): PANCREATIC CANCER. Brother(s) Family Medical History: Blood Disorder, Cancer Additional Family Medical History / Comment(s): BRO #1-FACTOR V. BRO # 2-ORAL CA. FATHER-PANCREATIC CA General Exam Limitations: no limitations General appearance: alert, in no apparent distress Head exam: Present: atraumatic, normocephalic, normal inspection Eye exam: Present: normal appearance, PERRL, EOMI. Absent: scleral icterus, conjunctival injection, periorbital swelling ENT exam: Present: normal exam, mucous membranes moist Neck exam: Present: normal inspection. Absent: tenderness, meningismus, lymphadenopathy Respiratory exam: Present: normal lung sounds bilaterally. Absent: respiratory distress, wheezes, rales, rhonchi, stridor Cardiovascular Exam: Present: tachycardia, irregular rhythm, normal heart s ounds. Absent: systolic murmur, diastolic murmur, rubs, gallop, clicks GI/Abdominal exam: Present: soft, normal bowel sounds. Absent: distended, tenderness, guarding, rebound, rigid Extremities exam: Present: normal inspection, full ROM, normal capillary refill. Absent: tenderness, pedal edema, joint swelling, calf tenderness Back exam: Present: normal inspection Neurological exam: Present: alert, oriented X3, CN II-XII intact Psychiatric exam: Present: normal affect, normal mood Skin exam: Present: warm, dry, intact, normal color. Absent: rash Course Vital Signs 10/25/22 10/25/22 10/25/22 17:27 19:37 21:00 Temperature 98 F Pulse Rate 130 H 126 H Pulse Rate [ 125 H Medical Staff Specialist ] Respiratory 20 16 Rate Blood Pressure 105/72 120/88 Blood Pressure [Left Arm Sitting] O2 Sat by Pulse 97 99 Oximetry 10/25/22 10/26/22 10/26/22 22:00 00:00 01:30 Temperature Pulse Rate 126 H 128 H 126 H Pulse Rate [ Medical Staff Specialist ] Respiratory 16 16 16 Rate Blood Pressure 114/100 104/80 124/83 Blood Pressure [Left Arm Sitting] O2 Sat by Pulse 99 95 96 Oximetry 10/26/22 10/26/22 10/26/22 02:29 03:00 04:00 Temperature Pulse Rate 126 H 126 H 126 H Pulse Rate [ Medical Staff Specialist ] Respiratory 16 14 16 Rate Blood Pressure 111/78 112/83 113/75 Blood Pressure [Left Arm Sitting] O2 Sat by Pulse 97 95 Oximetry 10/26/22 10/26/22 10/26/22 05:00 06:00 07:00 Temperature Pulse Rate 128 H 128 H 129 H Pulse Rate [ Medical Staff Specialist ] Respiratory 16 14 16 Rate Blood Pressure 111/86 114/79 100/88 Blood Pressure [Left Arm Sitting] O2 Sat by Pulse Oximetry 10/26/22 10/26/22 10/26/22 09:00 11:00 12:02 Temperature Pulse Rate 130 H 135 H 134 H Pulse Rate [ Medical Staff Specialist ] Respiratory 16 21 17 Rate Blood Pressure 88/72 88/49 79/64 Blood Pressure [Left Arm Sitting] O2 Sat by Pulse 97 98 Oximetry 10/26/22 10/26/22 10/26/22 12:29 13:00 15:30 Temperature Pulse Rate 130 H 128 H 128 H Pulse Rate [ Medical Staff Specialist ] Respiratory 15 12 11 L Rate Blood Pressure 82/63 91/69 84/73 Blood Pressure [Left Arm Sitting] O2 Sat by Pulse 97 98 Oximetry 10/26/22 10/26/22 10/26/22 16:00 17:00 18:00 Temperature Pulse Rate 128 H 129 H 127 H Pulse Rate [ Medical Staff Specialist ] Respiratory 15 18 18 Rate Blood Pressure 96/72 97/71 112/82 Blood Pressure [Left Arm Sitting] O2 Sat by Pulse 98 98 96 Oximetry 10/26/22 10/26/22 10/27/22 18:45 21:30 00:30 Temperature 97.5 F L Pulse Rate 128 H Pulse Rate [ 126 H 125 H Medical Staff Specialist ] Respiratory 18 18 18 Rate Blood Pressure 107/63 Blood Pressure 110/84 108/76 [Left Arm Sitting] O2 Sat by Pulse 97 98 Oximetry 10/27/22 10/27/22 10/27/22 04:27 08:00 11:14 Temperature Pulse Rate Pulse Rate [ 128 H 128 H 128 H Medical Staff Specialist ] Respiratory 18 18 Rate Blood Pressure Blood Pressure 119/89 98/66 [Left Arm Sitting] O2 Sat by Pulse 96 Oximetry 10/27/22 10/27/22 10/27/22 12:00 14:00 16:00 Temperature 97.1 F L Pulse Rate Pulse Rate [ 130 H 128 H 128 H Medical Staff Specialist ] Respiratory 18 18 18 Rate Blood Pressure Blood Pressure 103/77 101/61 [Left Arm Sitting] O2 Sat by Pulse 98 Oximetry EKG Findings - EKG Comments: EKG Findings:: EKG demonstrates a flutter with a rate of 128. QRS 136. QTC of 405. Right bundle-branch block. No acute ST segment elevations Medical Decision Making - Medical Decision Making Was pt. sent in by a medical professional or institution? The logistics team leader, Dr. Castellanos Did you speak to anyone other than the patient for history? The logistics team leader Did you review nursing and triage notes? yes and I agree Were old charts reviewed? yes, from [facility] ER visit yesterday Differential Diagnosis? afib, aflutter, sinus tach, PACs EKG interpreted by me (3pts min.)? yes X-rays interpreted by me (1pt min.)? no CT interpreted by me (1pt min.)? no U/S interpreted by me (1pt. min.)? no What testing was considered but not performed? (CT, X-rays, U/S, labs)? Why? CT chest however this was performed at [facility] yesterday What meds were considered but not given? Why? none Did you discuss the management of the patient with other professionals? the logistics team leader and admitting physician Did you reconcile home meds? yes Was smoking cessation discussed for >3mins.? no Was critical care preformed (if so, how long)? yes, 35 minutes Were there social determinants of health that impacted care today? How? (Homelessness, low income, unemployed, alcoholism, drug addiction, transportation, low edu. Level, literacy, decrease access to med. care, longterm, rehab)? no Was there de-escalation of care discussed even if they declined? (Discuss DNR or withdrawal of care, Hospice)? no What co-morbidities impacted this encounter? (DM, HTN, Smoking, COPD, CAD, Cancer, CVA, Hep., AIDS, mental health diagnosis, sleep apnea, morbid obesity)? none Was patient admitted / discharged? @Upon arrival patient was placed into room 22. A thorough history and physical exam is performed. IV access is established lavatories studies are conducted. Troponin elevated at 0.098. Chest x-ray performed which demonstrates no active cardiopulmonary disease. Patient placed on Cardizem and heparin drip. Will be admitted to Dr. Fernandez who agreed to admission. Patient currently awaiting a bed on the floor Undiagnosed new problem with uncertain prognosis? yes Drug Therapy requiring intensive monitoring for toxicity (Heparin, Nitro, Insulin, Cardizem)? yes Were any procedures done? no Diagnosis/symptom? new onset aflutter Acute, or Chronic, or Acute on Chronic? acute Uncomplicated (without systemic symptoms) or Complicated (systemic symptoms)? complicated Side effects of treatment? bradycardia, hypotension Exacerbation, Progression, or Severe Exacerbation] no Poses a threat to life or bodily function? yes - Lab Data Result diagrams: 10/26/22 08:16 10/29/22 07:56 Lab Results 10/25/22 10/25/22 10/25/22 Range/Units 19:20 19:20 19:20 WBC 5.7 (3.8-10.6) k/uL RBC 4.10 L (4.30-5.90) m/uL Hgb 12.7 L (13.0-17.5) gm/dL Hct 38.3 L (39.0-53.0) % MCV 93.6 (80.0-100.0) fL MCH 30.9 (25.0-35.0) pg MCHC 33.0 (31.0-37.0) g/dL RDW 14.3 (11.5-15.5) % Plt Count 216 (150-450) k/uL MPV 8.3 Neutrophils % 64 % Lymphocytes % 26 % Monocytes % 6 % Eosinophils % 2 % Basophils % 1 % Neutrophils # 3.7 (1.3-7.7) k/uL Lymphocytes # 1.5 (1.0-4.8) k/uL Monocytes # 0.3 (0-1.0) k/uL Eosinophils # 0.1 (0-0.7) k/uL Basophils # 0.0 (0-0.2) k/uL PT 9.9 (9.0-12.0) sec INR 0.9 (<1.2) APTT 22.6 (22.0-30.0) sec Sodium 140 (137-145) mmol/L Potassium 4.9 (3.5-5.1) mmol/L Chloride 108 H (98-107) mmol/L Carbon Dioxide 28 (22-30) mmol/L Anion Gap 4 mmol/L BUN 21 H (9-20) mg/dL Creatinine 0.80 (0.66-1.25) mg/dL Est GFR (CKD-EPI)AfAm >90 (>60 ml/min/1.73 sqM) Est GFR (CKD-EPI)NonAf 83 (>60 ml/min/1.73 sqM) Glucose 114 H (74-99) mg/dL Calcium 8.9 (8.4-10.2) mg/dL Magnesium 2.1 (1.6-2.3) mg/dL Total Bilirubin 0.3 (0.2-1.3) mg/dL AST 31 (17-59) U/L ALT 19 (4-49) U/L Alkaline Phosphatase 68 (38-126) U/L Troponin I (0.000-0.034) ng/mL Total Protein 6.5 (6.3-8.2) g/dL Albumin 3.9 (3.5-5.0) g/dL TSH 0.340 L (0.465-4.680) mIU/L Free T4 1.32 (0.78-2.19) ng/dL 10/25/22 Range/Units 19:20 WBC (3.8-10.6) k/uL RBC (4.30-5.90) m/uL Hgb (13.0-17.5) gm/dL Hct (39.0-53.0) % MCV (80.0-100.0) fL MCH (25.0-35.0) pg MCHC (31.0-37.0) g/dL RDW (11.5-15.5) % Plt Count (150-450) k/uL MPV Neutrophils % % Lymphocytes % % Monocytes % % Eosinophils % % Basophils % % Neutrophils # (1.3-7.7) k/uL Lymphocytes # (1.0-4.8) k/uL Monocytes # (0-1.0) k/uL Eosinophils # (0-0.7) k/uL Basophils # (0-0.2) k/uL PT (9.0-12.0) sec INR (<1.2) APTT (22.0-30.0) sec Sodium (137-145) mmol/L Potassium (3.5-5.1) mmol/L Chloride (98-107) mmol/L Carbon Dioxide (22-30) mmol/L Anion Gap mmol/L BUN (9-20) mg/dL Creatinine (0.66-1.25) mg/dL Est GFR (CKD-EPI)AfAm (>60 ml/min/1.73 sqM) Est GFR (CKD-EPI)NonAf (>60 ml/min/1.73 sqM) Glucose (74-99) mg/dL Calcium (8.4-10.2) mg/dL Magnesium (1.6-2.3) mg/dL Total Bilirubin (0.2-1.3) mg/dL AST (17-59) U/L ALT (4-49) U/L Alkaline Phosphatase (38-126) U/L Troponin I 0.098 H* (0.000-0.034) ng/mL Total Protein (6.3-8.2) g/dL Albumin (3.5-5.0) g/dL TSH (0.465-4.680) mIU/L Free T4 (0.78-2.19) ng/dL Critical Care Time Critical Care Time: Yes Critical Care Time: 35 minutes Disposition Clinical Impression: Atrial flutter with rapid ventricular response Disposition: ADMITTED IP TO THIS [facility] Condition: Serious Is patient prescribed a controlled substance at d/c from ED?: No Time of Disposition: 21:36 Decision to Admit Reason: Admit from EC Decision Date: 10/25/22 Decision Time: 21:36
[2022-10-25 20:43] LABS: T4, Free (Free Thyroxine) 1.32 ng/dL (0.78-2.19)
--- NOTE | 2022-10-25 21:04 | XR ---
EXAMINATION TYPE: XR chest 2V DATE OF EXAM: 10/25/2022 COMPARISON: 06/28/2021 HISTORY: Dysrhythmia TECHNIQUE: 4 views FINDINGS: Heart is normal. Lungs are clear of infiltrate. No heart failure. There are chest leads. Dusty ny thorax is intact. Thoracic aorta is atheromatous. IMPRESSION: No active cardiopulmonary disease. Normal heart.
[2022-10-25] MEDS ORDERED: NALOXONE 0.4 MG/ML 1 ML VIAL IV PRN (21:37)
[2022-10-25] MEDS ORDERED: HEPARIN SODIUM 1,000 UN/ML (10ML VL) IV ONE (21:45)
[2022-10-25] MEDS ORDERED: HEPARIN SODIUM 1,000 UN/ML (10ML VL) IV PRN (21:45)
[2022-10-25] MEDS: SERTRALINE 50 MG TAB PO SCH (22:59)
[2022-10-25] MEDS: TAMSULOSIN 0.4 MG CAP.ER.24H PO SCH (22:59)
[2022-10-25] MEDS: HEPARIN SOD,PORK IN 0.45% NACL 25,000 UNIT in 0.45% NACL 1 250ML.BAG IV SCH (23:04)
[2022-10-26] MEDS ORDERED: LEVOTHYROXINE 137 MCG TAB PO SCH (07:00)
[2022-10-26 08:34] LABS: Basophils % (A) 1 %; Eosinophils # (A) 0.1 k/uL (0-0.7); Eosinophils % (A) 2 %; HCT 37.7 % (39.0-53.0); HGB 12.4 gm/dL (13.0-17.5); Lymphocytes # (A) 1.2 k/uL (1.0-4.8); Lymphocytes % (A) 22 %; MCH 30.8 pg (25.0-35.0); MCV 93.3 fL (80.0-100.0); Mean Platelet Volume 8.2; Monocytes # (A) 0.3 k/uL (0-1.0); Monocytes % (A) 5 %; Neutrophils # (A) 3.8 k/uL (1.3-7.7); Neutrophils % (A) 69 %; Platelet Count 192 k/uL (150-450); RBC 4.04 m/uL (4.30-5.90); RDW 14.2 % (11.5-15.5); WBC 5.6 k/uL (3.8-10.6)
[2022-10-26] MEDS: TAMSULOSIN 0.4 MG CAP.ER.24H PO SCH ×2 (08:36→20:48)
[2022-10-26] MEDS: MULTIVITAMINS, THERA 1 EACH TAB PO SCH (08:37)
[2022-10-26 09:07] LABS: African American GFR (CKD) >90 (>60 ml/min/1.73 sqM); Anion Gap 3 mmol/L; Blood Urea Nitrogen 13 mg/dL (9-20); Calcium 8.6 mg/dL (8.4-10.2); Carbon Dioxide 28 mmol/L (22-30); Chloride 108 mmol/L (98-107); Glucose 105 mg/dL (74-99); Non-African American GFR(CKD) >90 (>60 ml/min/1.73 sqM); Potassium 3.9 mmol/L (3.5-5.1); Sodium 139 mmol/L (137-145)
[2022-10-26] MEDS ORDERED: AMIODARONE 360 MG in DEXTROSE 5% IN WATER 200 ML IV ONE ×2 (09:44)
[2022-10-26] MEDS ORDERED: DEXTROSE 5% IN WATER 100 ML with AMIODARONE 150 MG IV ONE (09:44)
[2022-10-26] MEDS: DILTIAZEM 125 MG in SODIUM CHLORIDE 0.9% 100 ML IV SCH ×2 (11:03→20:16)
--- NOTE | 2022-10-26 13:04 | P.HPIM ---
History of Present Illness Chief Complaint: Progressive shortness of breath with palpitation History and physical dictation Date of service 10/26/[address] correia Chief complaint: Patient presented to the emergency room physician with the palpitation arrhythmias, patient send by Dr. Mcmanus to the ER with the underlying atrial flutter/fibrillation with rapid ventricular response and tachycardia. Detail history: Patient on night felt short of breast severely progressive, patient called Dr. Ramos vascular surgeon with the patient thought of blood clot , with a history of varicose veins bilateral. Dr. Leslie advised him to come to the emergency room [facility], where he was seen by the ER physician Gurpreet and he has been thoroughly investigated with CT scans of the chest and other tested stunt available to us at this time. Subsequently advised patient to stay in the hospital at least for observation, patient refused and signed AMA, however they make appointment with Dr. Mitchell cardiology did see him on Friday at 2 PM and subsequently after he evaluated the patient immediately he send him to the emergency room at [facility] with the rapid ventricular response with the palpitation as well as shortness of breath. For for further evaluation and treatment and admission Patient came ambulatory to the ER at [facility] where he was seen by ER physician Dr. Nadja Santiago who did discuss it with the field automobile adjuster and found that he had atrial flutter fibrillation with RVR and called me on the phone to admit the patient under my service however the cardiology is a 10 send the patient and they are aware of his problem and they will continue care for the patient. In the ER patient investigated again, has chest x-ray which was negative and laboratory done and the pertinent is the presence of elevated troponin, which subsequently another laboratory for troponin done and progressively increased with the underlying subendocardial ischemia non-STEMI UT versus the demand with the rapid ventricular response for the atrial flutter after/fibrillation. Laboratories in the ER: WBC 5.7/hemoglobin 12.7 and hematocrit 38.3 and the platelet count 260. Pro time 9.9, INR 0.9, PTT 22.6 Chemistry sodium 140 potassium 4.9, chloride 108, carbon dioxide 28, anion gap 4, BUN 21, creatinine 0.8, EGFR for non- 83, blood sugar 114 nonfasting, calcium 8.9, magnesium 2.1, total bilirubin 0.3, AST 31 a LT 19 alk phos 68, Total protein 6.5 and albumin 3.9, initially the troponin 0.098 with the repeat has been increased significantly and probably supply and demand for the blood flow to the cardiac muscle. EKG demonstrates atrial flutter with a rate [address] segment elevation. The note of Dr. 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 1997 #5 history of hypoglycemia seen by Dr. Barnes thyroid as well as for hypoglycemia. #6 UT 2007. #7 cholecystectomy #8 cardiac catheterization with stent placement 2007 #9 and anxiety disorder #10 colonoscopy. 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 #12 occasional nausea and vomiting. Family history: Pancreatic cancer, father Brother had factor V Leiden blood clot and oral cancer, blood disorder. . ALLERGIES: Caused hallucination for morphine Review of system: #1 shortness of breath resistant and several testing including CAT scan [facility] ER #2 no clear chest pain however there is a palpitation significant with the rapid heartbeat #3 GI no symptoms #4 neurologically no symptoms #5 ambulatory and musculoskeletal he total generalized weakness. #6 no headache or blurred vision #7 reviewed the 14 bullet noncontributory Physical examination [id number] Head was normocephalic and atraumatic, he had cataract surgery bilateral by Dr. Gruber international trade compliance manager no complaint of headache or blurred vision Oropharynx natural teeth good hygiene Hearing is normal nose no rhinitis Neck was supple no JVD no thyromegaly no lymphadenopathy trachea midline with the previous history of surgical 2 on the thyroid for thyroid cancer and also the lower esophagectomy and pulling up in the chest and UM Chest is clear no wheezes no rhonchi's with the increased anteroposterior diameter with the history of COPD seen in the past by pulmonary and critical care. Heart PMI in the fifth intercostal space outside midclavicular line with a tachycardia irregular irregularities with the underlying atrial flutter fibrillation. Elevated troponin 2. Abdomen is soft nontender positive bowel sounds Extremities bilateral varicose veins. No edema, pulses in the feet intact bilateral Musculoskeletal arthritis both in the knees and the spine with mild kyphosis Neurologically stable Psychiatry stable. Assessment: #1 acute shortness of breath, associated with palpitation #2 atrial flutter/fibrillation with a rapid ventricular response rate ranging between 1301 27. With that palpitation #3 elevated troponin 2 with the underlying supply and demand versus subendocardial ischemia non-STEMI UT #4 COPD. #5 bilateral varicose veins of the lower extremities. #6 history of coronary artery disease and status post 1 stent and atherosclerotic heart disease. #7 history of lower esophageal cancer and status post esophagectomy as well as status post thyroid cancer with thyroidectomy. Plan: #1 seen in the emergency room by Dr. Baptiste with the underlying cardia Leona stopped due to hypotension as a side effect for cardiac exam patient could not tolerated and the please them on amiodarone by #2 patient on heparin protocol as well as now amiodarone with the Cardizem drip has been discontinued with the total volume approximately 100 mL per hour and patient able to eat and drink. #3 continue home medication. #4 lipid profile if wasn't done. #5 admission to telemetry floor #6 for further treatment depend on the patient progression #7 with the elevated troponin, prognosis is guarded. Past Medical History Past Medical History: Cancer, COPD, GERD/Reflux, Myocardial Infarction (UT), Osteoarthritis (OA), Prostate Disorder, Thyroid Disorder Additional Past Medical History / Comment(s): ESOPHAGEAL CANCER WITH ESOPHOGECTOMY (2014), THYROID CANCER (1997)., HYPOGLYCEMIA, INFECTED BRAIN LESION (2016-REMOVED). , OCCASIONAL GERD., CURRENTLY HAVING PAIN AFTER EATING AND NAUSEA.states did not have mrsa Last Myocardial Infarction Date:: 2007 History of Any Multi-Drug Resistant Organisms: MRSA Date of last positivie culture/infection: 1997 MDRO Source:: POST -OP THYROID Past Surgical History: Cholecystectomy, Heart Catheterization With Stent, Hernia Repair Additional Past Surgical History / Comment(s): THYROIDECTOMY (X2 SURGERIES), ESOPHOGECTOMY (JUL 2015) , BRAIN LESION (OCT 2015). COLONOSCOPY Past Anesthesia/Blood Transfusion Reactions: No Reported Reaction Date of Last Stent Placement:: 2007 Past Psychological History: Anxiety Past Alcohol Use History: None Reported Past Drug Use History: None Reported - Past Family History Father Family Medical History: Cancer Additional Family Medical History / Comment(s): PANCREATIC CANCER. Brother(s) Family Medical History: Blood Disorder, Cancer Additional Family Medical History / Comment(s): BRO #1-FACTOR V. BRO # 2-ORAL CA. FATHER-PANCREATIC CA Medications and Allergies Home Medications Medication Instructions Recorded Confirmed Type Sertraline [Zoloft] 50 mg PO HS 06/20/15 10/25/22 History Tamsulosin [Flomax] 0.4 mg PO BID 06/20/15 10/25/22 History Multivitamins, Thera [Multivitamin 1 tab PO DAILY 06/19/17 10/25/22 History (formulary)] Levothyroxine Sodium [Synthroid] 137 mcg PO DAILY 10/25/22 10/25/22 History Allergies Allergy/AdvReac Type Severity Reaction Status Date / Time morphine Allergy Hallucinati Verified 10/25/22 21:06 ons Physical Exam Vitals: Vital Signs Temp Pulse Pulse Resp BP Pulse Ox 10/26/22 12:02 134 H 17 79/64 10/26/22 11:00 135 H 21 88/49 98 10/26/22 09:00 130 H 16 88/72 97 10/26/22 07:00 129 H 16 100/88 10/26/22 06:00 128 H 14 114/79 10/26/22 05:00 128 H 16 111/86 10/26/22 04:00 126 H 16 113/75 10/26/22 03:00 126 H 14 112/83 95 10/26/22 02:29 126 H 16 111/78 97 10/26/22 01:30 126 H 16 124/83 96 10/26/22 00:00 128 H 16 104/80 95 10/25/22 22:00 126 H 16 114/100 99 10/25/22 21:00 126 H 16 120/88 99 10/25/22 19:37 125 H 10/25/22 17:27 98 F 130 H 20 105/72 97 Intake and Output 10/25/22 10/26/22 10/26/22 22:59 06:59 14:59 Other: Weight 73.482 kg Results CBC & Chem 7: 10/26/22 08:16 10/26/22 08:16 Labs: Abnormal Lab Results - Last 24 Hours (Table) 10/25/22 10/25/22 10/25/22 Range/Units 19:20 19:20 19:20 RBC 4.10 L (4.30-5.90) m/uL Hgb 12.7 L (13.0-17.5) gm/dL Hct 38.3 L (39.0-53.0) % APTT (22.0-30.0) sec Chloride 108 H (98-107) mmol/L BUN 21 H (9-20) mg/dL Creatinine (0.66-1.25) mg/dL Glucose 114 H (74-99) mg/dL Troponin I 0.098 H* (0.000-0.034) ng/mL TSH 0.340 L (0.465-4.680) mIU/L 10/25/22 10/26/22 10/26/22 Range/Units 22:20 08:16 08:16 RBC 4.04 L (4.30-5.90) m/uL Hgb 12.4 L (13.0-17.5) gm/dL Hct 37.7 L (39.0-53.0) % APTT (22.0-30.0) sec Chloride 108 H (98-107) mmol/L BUN (9-20) mg/dL Creatinine 0.65 L (0.66-1.25) mg/dL Glucose 105 H (74-99) mg/dL Troponin I 0.103 H* (0.000-0.034) ng/mL TSH (0.465-4.680) mIU/L 10/26/22 Range/Units 08:16 RBC (4.30-5.90) m/uL Hgb (13.0-17.5) gm/dL Hct (39.0-53.0) % APTT 42.8 H (22.0-30.0) sec Chloride (98-107) mmol/L BUN (9-20) mg/dL Creatinine (0.66-1.25) mg/dL Glucose (74-99) mg/dL Troponin I (0.000-0.034) ng/mL TSH (0.465-4.680) mIU/L
--- NOTE | 2022-10-26 15:07 | P.CRDCN ---
History of Present Illness Consult date: 10/26/22 Consult reason: atrial fibrillation History of present illness: The patient is an 81-year-old male who follows in the office with Dr. Castellanos. He notified cardiology that he had had increased shortness of breath and rapid heart rate. It was recommended that he come to the emergency room. EKG shows atrial flutter/atrial tachycardia with RVR. He was started on a Cardizem drip, however became hypotensive. Bedside echocardiogram revealed normal LV function per Dr. Baptiste. According to the patient's , he had had progressive shortness of breath over the last several months. The patient typically plays pickle ball and had been having spells and recently fell, injuring his left arm. He denies any syncope. DIAGNOSTICS: EKG shows atrial flutter with RVR Chest x-ray shows no acute cardiopulmonary process Vital signs: Blood pressure 88/72, pulse 1:30, respiratory rate 16, SpO2 97% on room air Lab data: WBC 5.6, hemoglobin 12.4, hematocrit 37.7, platelet 192, sodium 139, potassium 3.9, BUN 13, creatinine 0.65, troponin 0.09, 0.10, TSH 0.34, T4 1.32, AST 31, ALT 19 REVIEW OF SYSTEMS: No fever or chills. No cough or expectoration. No diaphoresis. Patient denies headache, dizziness, blurred vision, double vision. Patient denies any stomach discomfort. No nausea, vomiting. No hematochezia. No hematemesis. Denies any black stools or blood in his stools. Denies dysuria or hematuria. No muscle weakness or numbness. No chest pain or chest pressure. No dyspnea at rest. No orthopnea. PHYSICAL EXAMINATION: This is a 81-year-old male in no apparent distress at the time of my examination. HEENT: Head is atraumatic, normocephalic. Pupils are equal, round. Sclerae anicteric. Conjunctivae are clear. Mucous membranes of the mouth are moist. Neck is supple. There is no jugular venous distention. No carotid bruit is heard. CHEST EXAMINATION: Lungs are clear to auscultation. No chest wall tenderness is noted on palpation or with deep breathing. HEART EXAMINATION: Irregular rate and rhythm. S1, S2 heard. No murmurs, gallops or rub. ABDOMEN: Soft, nontender. Bowel sounds are heard. No organomegaly noted. EXTREMITIES: 2+ peripheral pulses with no evidence of peripheral edema and no calf tenderness noted. NEUROLOGIC EXAMINATION: Patient is awake, alert and oriented x3. FINAL ASSESSMENT AND PLAN: Atrial flutter with RVR Abnormal TSH History of esophageal cancer status post esophagectomy History of bladder cancer, currently undergoing treatment History of coronary artery disease with stent in 2007 PLAN: Reduce levothyroxine to 125 g Agree with amiodarone drip. Slow bolus to avoid hypotension. Recommend rate control over the next 24 hours. RADHA with cardioversion on Friday with primary analytical technician I am dictating on behalf of Dr Manny Baptiste's history/physical and assessment/plan. Past Medical History Past Medical History: Cancer, COPD, GERD/Reflux, Myocardial Infarction (SD), Osteoarthritis (OA), Prostate Disorder, Thyroid Disorder Additional Past Medical History / Comment(s): ESOPHAGEAL CANCER WITH ESOPHOGECTOMY (2014), THYROID CANCER (1997)., HYPOGLYCEMIA, INFECTED BRAIN LESION (2015-REMOVED). , OCCASIONAL GERD., CURRENTLY HAVING PAIN AFTER EATING AND NAUSEA.states did not have mrsa Last Myocardial Infarction Date:: 2007 History of Any Multi-Drug Resistant Organisms: MRSA Date of last positivie culture/infection: 1997 MDRO Source:: POST -OP THYROID Past Surgical History: Cholecystectomy, Heart Catheterization With Stent, Hernia Repair Additional Past Surgical History / Comment(s): THYROIDECTOMY (X2 SURGERIES), ESOPHOGECTOMY (JUL 2015) , BRAIN LESION (OCT 2015). COLONOSCOPY Past Anesthesia/Blood Transfusion Reactions: No Reported Reaction Date of Last Stent Placement:: 2007 Past Psychological History: Anxiety Past Alcohol Use History: None Reported Past Drug Use History: None Reported - Past Family History Father Family Medical History: Cancer Additional Family Medical History / Comment(s): PANCREATIC CANCER. Brother(s) Family Medical History: Blood Disorder, Cancer Additional Family Medical History / Comment(s): BRO #1-FACTOR V. BRO # 2-ORAL CA. FATHER-PANCREATIC CA Medications and Allergies Home Medications Medication Instructions Recorded Confirmed Type Sertraline [Zoloft] 50 mg PO HS 06/20/15 10/25/22 History Tamsulosin [Flomax] 0.4 mg PO BID 06/20/15 10/25/22 History Multivitamins, Thera [Multivitamin 1 tab PO DAILY 06/19/17 10/25/22 History (formulary)] Levothyroxine Sodium [Synthroid] 137 mcg PO DAILY 10/25/22 10/25/22 History Allergies Allergy/AdvReac Type Severity Reaction Status Date / Time morphine Allergy Hallucinati Verified 10/25/22 21:06 ons Physical Exam Vitals: Vital Signs Temp Pulse Pulse Resp BP Pulse Ox 10/26/22 13:00 128 H 12 91/69 97 10/26/22 12:29 130 H 15 82/63 10/26/22 12:02 134 H 17 79/64 10/26/22 11:00 135 H 21 88/49 98 10/26/22 09:00 130 H 16 88/72 97 10/26/22 07:00 129 H 16 100/88 10/26/22 06:00 128 H 14 114/79 10/26/22 05:00 128 H 16 111/86 10/26/22 04:00 126 H 16 113/75 10/26/22 03:00 126 H 14 112/83 95 10/26/22 02:29 126 H 16 111/78 97 10/26/22 01:30 126 H 16 124/83 96 10/26/22 00:00 128 H 16 104/80 95 10/25/22 22:00 126 H 16 114/100 99 10/25/22 21:00 126 H 16 120/88 99 10/25/22 19:37 125 H 10/25/22 17:27 98 F 130 H 20 105/72 97 Intake and Output 10/25/22 10/26/22 10/26/22 22:59 06:59 14:59 Other: Weight 73.482 kg Results 10/26/22 08:16 10/26/22 08:16 Cardiac Enzymes 10/25/22 10/25/22 10/25/22 Range/Units 19:20 19:20 22:20 AST 31 (17-59) U/L Troponin I 0.098 H* 0.103 H* (0.000-0.034) ng/mL Coagulation 10/25/22 10/26/22 Range/Units 19:20 08:16 PT 9.9 (9.0-12.0) sec APTT 22.6 42.8 H (22.0-30.0) sec CBC 10/25/22 10/26/22 Range/Units 19:20 08:16 WBC 5.7 5.6 (3.8-10.6) k/uL RBC 4.10 L 4.04 L (4.30-5.90) m/uL Hgb 12.7 L 12.4 L (13.0-17.5) gm/dL Hct 38.3 L 37.7 L (39.0-53.0) % Plt Count 216 192 (150-450) k/uL Comprehensive Metabolic Panel 10/25/22 10/26/22 Range/Units 19:20 08:16 Sodium 140 139 (137-145) mmol/L Potassium 4.9 3.9 (3.5-5.1) mmol/L Chloride 108 H 108 H (98-107) mmol/L Carbon Dioxide 28 28 (22-30) mmol/L BUN 21 H 13 (9-20) mg/dL Creatinine 0.80 0.65 L (0.66-1.25) mg/dL Glucose 114 H 105 H (74-99) mg/dL Calcium 8.9 8.6 (8.4-10.2) mg/dL AST 31 (17-59) U/L ALT 19 (4-49) U/L Alkaline Phosphatase 68 (38-126) U/L Total Protein 6.5 (6.3-8.2) g/dL Albumin 3.9 (3.5-5.0) g/dL Current Medications Generic Name Dose Route Start Last Admin Trade Name Freq PRN Reason Stop Dose Admin Heparin Sodium (Porcine) 0 unit 10/25/22 21:45 Heparin Sodium 1,000 Un/Ml (10ml Vl) IV PER PROTOCOL PRN Low PTT Protocol Diltiazem HCl 125 mg/ Sodium 125 mls @ 10 mls/hr 10/25/22 19:30 10/26/22 11:03 Chloride IV Not Given .[id number] ISABELLE 10 MG/HR Heparin Sodium/Sodium Chloride 250 mls @ 8.818 mls/hr 10/25/22 21:45 10/25/22 23:04 25,000 unit/ Sodium Chloride IV 12 units/kg/hr .Q24H ISABELLE 8.818 mls/hr Administration Protocol 12 UNITS/KG/HR Amiodarone HCl 360 mg/ 200 mls @ 33.333 mls/hr 10/26/22 09:44 10/26/22 13:16 Dextrose/Water IV 10/26/22 15:43 1 mg/min .Q6H ONE 33.333 mls/hr Administration Protocol 1 MG/MIN Amiodarone HCl 450 mg/ 250 mls @ 16.667 mls/hr 10/26/22 15:45 Dextrose/Water IV 10/27/22 09:44 .Q15H ISABELLE Protocol 0.5 MG/MIN Levothyroxine Sodium 137 mcg 10/26/22 07:00 10/26/22 08:37 Levothyroxine 137 Mcg Tab PO 137 mcg DAILY@0700 ISABELLE Administration Multivitamins 1 each 10/26/22 09:00 10/26/22 08:37 Multivitamins, Thera 1 Each Tab PO 1 each DAILY ISABELLE Administration Naloxone HCl 0.2 mg 10/25/22 21:37 Naloxone 0.4 Mg/Ml 1 Ml Vial IV Q2M PRN Opioid Reversal Sertraline HCl 50 mg 10/25/22 21:45 10/25/22 22:59 Sertraline 50 Mg Tab PO 50 mg HS ISABELLE Administration Tamsulosin HCl 0.4 mg 10/25/22 22:00 10/26/22 08:36 Tamsulosin 0.4 Mg Cap.Er.24h PO 0.4 mg BID ISABELLE Administration Intake and Output 10/25/22 10/26/22 10/26/22 22:59 06:59 14:59 Other: Weight 73.482 kg 10/26/22 08:16 10/26/22 08:16
[2022-10-26] MEDS ORDERED: SODIUM CHLORIDE 0.9% 500 ML 500 ML IV ONE (17:57)
[2022-10-26] MEDS: SODIUM CHLORIDE 0.9% 1,000 ML IV SCH (18:33)
[2022-10-26 18:47] LABS: Chol/HDL Ratio 2.13 Ratio; LDL Cholesterol,Calculated 76.7 mg/dL (0.0-131.0); VLDL Calculation 10.72 mg/dL (5.00-40.00)
--- NOTE | 2022-10-26 18:53 | CA ---
Transthoracic Echo Report Name: Du Herr Age: 81 Gender: M : 1940 Exam Date: 10/26/2022 11:33 Exam Location: [facility] Ht (in): Wt (lb): Ordering Physician: Forrest Castellanos MD ([id number]) Attending/Referring Phys: Classroom Instructional Aide Andreia Baron RDCS Procedure CPT: Indications: atrial flutter Cardiac Hx: Technical Quality: Technically difficult study Contrast 1: Lumason Total Dose (mL): 5 Contrast 2: Total Dose (mL): MEASUREMENTS (Male / Female) Normal Values FINDINGS Left Ventricle Left ventricular ejection fraction is estimated at 50 %. Mildly increased left ventricular wall thickness. Preserved LV systolic function. Right Ventricle Right Atrium Left Atrium Mitral Valve Mild mitral regurgitation. Aortic Valve No aortic valve stenosis or regurgitation. Tricuspid Valve Mild tricuspid regurgitation. Pulmonic Valve Pulmonic valve not well visualized. Pericardium No pericardial effusion. Aorta CONCLUSIONS Patient tachycardic, in atrial flutter with RVR LV function of about 50% during tachycardia Previewed by: Dr. Manny Baptiste MD (Electronically Signed) Final Date: 26 October 2022 18:52
[2022-10-26] MEDS: AMIODARONE 450 MG in DEXTROSE 5% IN WATER 250 ML IV SCH ×2 (18:54)
[2022-10-26] MEDS: SERTRALINE 50 MG TAB PO SCH (20:47)
[2022-10-26] MEDS: HEPARIN SOD,PORK IN 0.45% NACL 25,000 UNIT in 0.45% NACL 1 250ML.BAG IV SCH (21:08)
[2022-10-27 04:27] LABS: African American GFR (CKD) >90 (>60 ml/min/1.73 sqM); Anion Gap 2 mmol/L; Blood Urea Nitrogen 14 mg/dL (9-20); Calcium 8.5 mg/dL (8.4-10.2); Carbon Dioxide 27 mmol/L (22-30); Chloride 110 mmol/L (98-107); Glucose 102 mg/dL (74-99); Non-African American GFR(CKD) 88 (>60 ml/min/1.73 sqM); Potassium 3.9 mmol/L (3.5-5.1); Sodium 139 mmol/L (137-145)
[2022-10-27] MEDS: HEPARIN SOD,PORK IN 0.45% NACL 25,000 UNIT in 0.45% NACL 1 250ML.BAG IV SCH (04:33)
[2022-10-27 04:35] LABS: Prothrombin Time 10.4 sec (9.0-12.0)
[2022-10-27] MEDS: TAMSULOSIN 0.4 MG CAP.ER.24H PO SCH ×2 (08:41→20:28)
[2022-10-27] MEDS: LEVOTHYROXINE 125 MCG TAB PO SCH (08:41)
[2022-10-27] MEDS: MULTIVITAMINS, THERA 1 EACH TAB PO SCH (08:41)
[2022-10-27] MEDS: AMIODARONE 450 MG in DEXTROSE 5% IN WATER 250 ML IV SCH ×2 (11:11)
--- NOTE | 2022-10-27 13:15 | P.PN ---
Subjective Progress Note Date: 10/27/22 The patient is an 81-year-old male who is currently admitted to the hospital with a flutter with RVR. He underwent limited echocardiogram yesterday which showed ejection fraction of 50%. He became hypotensive with Cardizem drip, therefore he was started on the amiodarone drip. The patient has been hemod ynamically stable, therefore he will undergo RADHA and cardioversion on Friday with his primary crude tester Dr. Castellanos. The patient was interviewed and examined resting comfortably in bed. He denies any current symptoms, however states he can feel his heart race. No chest pain, chest pressure, shortness of breath. No orthopnea. He has not ambulated around the room to assess for dizziness or lightheadedness. GENERAL: Well-appearing, well-nourished and in no acute distress. NECK: Supple without JVD or thyromegaly. LUNGS: Breath sounds clear to auscultation bilaterally. Respiration equal and unlabored. No wheezes, rales or rhonchi. HEART: Irregular rate and rhythm. S1 and S2 heard. Notabily tachycardic EXTREMITIES: Normal range of motion, no edema. No clubbing or cyanosis. Peripheral pulses intact and strong. VITALS: Blood pressure 119/89, pulse 128, respiratory rate 18, SpO2 96% on room TELEMETRY: A. fib with heart rates in the 120s LABS: Sodium 139, potassium 3.9, BUN 14, creatinine 0.70 IMPRESSION: Atrial flutter with RVR Abnormal TSH History of esophageal cancer status post esophagectomy History of bladder cancer, currently undergoing treatment History of coronary artery disease with stent in 2007 PLAN: Continue amiodarone for rate control Nothing by mouth after midnight RADHA and cardioversion on Friday with primary crude tester, Dr Castellanos I am dictating on behalf of Dr Manny Baptiste's history/physical and assessment/plan. Objective - Vital Signs Vital signs: Vital Signs Temp 97.5 F L 10/26/22 21:30 Pulse 128 H 10/27/22 11:14 Resp 18 10/27/22 08:00 BP 98/66 10/27/22 11:14 Pulse Ox 96 10/27/22 04:27 FiO2 Intake & Output 10/26/22 10/27/22 10/27/22 18:59 06:59 18:59 Intake Total 270.879 250 Balance 270.879 250 Intake: Intake, IV Titration 270.879 250 Amount Amiodarone 450 mg In 250 Dextrose 5% in Water 250 ml @ 0.5 MG/MIN 16.667 mls/hr IV .Q15H [facility] Rx#: [id number] Heparin Sod,Pork in 0.45% 270.879 NaCl 25,000 unit In 0.45 % NaCl 1 250ml.bag @ 12 UNITS/KG/HR 8.818 mls/hr IV .Q24H [facility] Rx#: [id number] Other: Voiding Method Toilet - Labs CBC & Chem 7: 10/26/22 08:16 10/27/22 03:50 Labs: Abnormal Lab Results - Last 24 Hours (Table) 10/26/22 10/26/22 10/27/22 Range/Units 08:16 20:21 03:50 APTT 39.4 H (22.0-30.0) sec Chloride 110 H (98-107) mmol/L Glucose 102 H (74-99) mg/dL HDL Cholesterol 77.60 H (40.00-60.00) mg/dL 10/27/22 Range/Units 03:50 APTT 49.9 H (22.0-30.0) sec Chloride (98-107) mmol/L Glucose (74-99) mg/dL HDL Cholesterol (40.00-60.00) mg/dL
--- NOTE | 2022-10-27 16:42 | P.PN ---
Subjective Progress Note Date: 10/27/22 (Abnormal elevated troponin) Principal diagnosis: Principal diagnosis #1 acute atrial flutter/fibrillation with RVR resistant #2 hypotension reaction with medication cardiazem drip #3 still atrial fib with RVR on amiodarone IV drip #4 abnormal troponin elevation associated with non-STEMI SD with a history of atherosclerotic heart disease and one stent #5 underlying mismatch for supply and demand could be associated with elevated troponin. #6 shortness of breath with the symptoms presentation to the emergency room #7 COPD.. #8 history of lower esophageal resection for cancer in [facility], associated with GERD disease #9 underlying history of thyroid resection surgery 2 for thyroid cancer. #10 bilateral varicose veins. Progress note dictation Date of service 10/27/[address] Fernandez Patient seen today [id number] and ER room examination 22, patient not yet in the floor monitoring telemetry floor because no beds available. Patient feel better today His heart rate still in the atrial fibrillation rate of 1 28 bpm irregular rhythm. No chest pain Blood pressure improved to 119/89 with a mean 99 and oxygen saturation 96% on room air, repeat blood pressure fluctuating to 98/66 with a mean 76. Patient is afebrile Patient seen by electrophysiologic gambling broker with the impression atrial flatter with RVR, abnormal TSH which is suppressed by the tractor engine assembler by larger doses of levothyroxin due to past history of cancer and patient has been seen by Dr. Mc tractor engine assembler. Patient has history also of bladder cancer. With the underlying treatment by Dr. Cameron/M[facility] urology of [facility]. Discussed with the patient and his at bedside answer the questions. On exam: Head was normocephalic and atraumatic pupil was equal reactive and conjunctiva was pink sclera was nonicteric. Oropharynx natural teeth Neck was supple no JVD no thyromegaly no lymphadenopathy with the scar for previous surgery on the thyroid resection and also pulling up the esophagus with the underlying lower esophageal resection and [facility]. Chest was clear to auscultation and percussion with increased anteroposterior diameter with the underlying history of COPD he had also underlying history of obstructive sleep apnea and that he will be seeking the studies in the future after he feel better by one of the critical care and sleep specialist. Heart irregular irregularity and echocardiogram wasn't done yet until tomorrow hopefully to assess his cardiac function with the elevated troponin. Endocrine history of hypoglycemia seen by the tractor engine assembler and also hypothyroidism Abdomen soft positive bowel sounds no tenderness. Extremities varicose veins bilateral. No edema and positive pulses Neurologically stable Psychiatrically stable. Assessment: #1 acute arrhythmia admitted with atrial flutter with RVR #2 elevated troponin with the underlying possibility of non-STEMI SD versus supply and demand mismatch of the coronary artery. #3 atherosclerosis of the coronary artery with the history of 1 stent. #4 NT pro-BMP was not done we'll order it to clarify the issue of there is any evidence of associated congestive heart failure with a fast heartbeat Plan: We'll obtain also troponin tomorrow see how much leveled or still continued to be elevated Cardiology following the patient with the possible RADHA tomorrow and apparently patient has limited echo could not find the reading on the chart and dictated by Dr. saravia as 50% ejection fraction however he drop his blood pressure significantly with the use of cardiac drip for controlling the heart rate Patient currently in the ER room 22 and hopefully he will be admitted to the floor. Objective - Vital Signs Vital signs: Vital Signs Temp 97.5 F L 10/26/22 21:30 Pulse 128 H 10/27/22 11:14 Resp 18 10/27/22 08:00 BP 98/66 10/27/22 11:14 Pulse Ox 96 10/27/22 04:27 FiO2 Intake & Output 10/26/22 10/27/22 10/27/22 18:59 06:59 18:59 Intake Total 270.879 250 Balance 270.879 250 Intake: Intake, IV Titration 270.879 250 Amount Amiodarone 450 mg In 250 Dextrose 5% in Water 250 ml @ 0.5 MG/MIN 16.667 mls/hr IV .Q15H [facility] Rx#: [id number] Heparin Sod,Pork in 0.45% 270.879 NaCl 25,000 unit In 0.45 % NaCl 1 250ml.bag @ 12 UNITS/KG/HR 8.818 mls/hr IV .Q24H [facility] Rx#: [id number] Other: Voiding Method Toilet - Labs CBC & Chem 7: 10/26/22 08:16 10/27/22 03:50 Labs: Abnormal Lab Results - Last 24 Hours (Table) 10/26/22 10/26/22 10/27/22 Range/Units 08:16 20:21 03:50 APTT 39.4 H (22.0-30.0) sec Chloride 110 H (98-107) mmol/L Glucose 102 H (74-99) mg/dL HDL Cholesterol 77.60 H (40.00-60.00) mg/dL 10/27/22 Range/Units 03:50 APTT 49.9 H (22.0-30.0) sec Chloride (98-107) mmol/L Glucose (74-99) mg/dL HDL Cholesterol (40.00-60.00) mg/dL
[2022-10-27] MEDS: SODIUM CHLORIDE 0.9% 1,000 ML IV SCH ×2 (17:56→20:29)
[2022-10-27] MEDS: SERTRALINE 50 MG TAB PO SCH (20:28)
[2022-10-28] MEDS: HEPARIN SOD,PORK IN 0.45% NACL 25,000 UNIT in 0.45% NACL 1 250ML.BAG IV SCH (02:04)
[2022-10-28] MEDS ORDERED: AMIODARONE 450 MG in DEXTROSE 5% IN WATER 250 ML IV SCH ×2 (02:15)
[2022-10-28] MEDS: LEVOTHYROXINE 125 MCG TAB PO SCH (05:32)
[2022-10-28] MEDS ORDERED: SODIUM CHLORIDE 0.9% 1,000 ML IV ONE (08:55)
[2022-10-28] MEDS ORDERED: PROPOFOL 10 MG/ML 20 ML VIAL IV ONE (09:02)
--- NOTE | 2022-10-28 09:23 | P.PCN ---
Date of Procedure: 10/28/22 Description of Procedure: Indication: Atrial flutter Procedure Description: After explaining the procedure to the patient, it's risk and complications, blood pressure, heart rate and O2 saturation were monitored. The throat was sprayed with Cetacaine. Patient received sedation per anesthesia department. The probe was introduced into the esophagus without difficulty. Images were obtained. Following that, the probe was removed. There was no immediate complication. Findings: Left atrial size is normal, left atrial appendage is normal. The ventricle systolic function appears to be preserved his ejection fraction around 50%. Mitral annulus calcification was noted. Calcification of the aortic valve was noted with reduced opening. The tricuspid valve is normal. Descending thoracic aorta revealed mild atherosclerotic changes. The intra-atrial septum is aneurysmal. No shunting by color Doppler study. Doppler: Pulse wave and color Doppler were obtained, revealed mild mitral with moderate tricuspid regurgitation, there was no shunting by color Doppler study Conclusion: 1. Normal appearance of the left atrial appendage 2. Normal size with borderline normal systolic function 3. Calcified aortic valve with reduced opening 4. Mild mitral with moderate tricuspid regurgitation 5. Aneurysmal intra-atrial septum with no shunting Cardioversion: After performing a RADHA and obtaining sedated state synchronized biphasic cardioversion using 150 J was performed with taoist of sinus mechanism. There was no immediate complications.
[2022-10-28] MEDS ORDERED: LACTATED RINGERS 1,000 ML IV ONE (09:30)
[2022-10-28] MEDS ORDERED: ACETAMINOPHEN TAB 325 MG TAB ONE (09:57)
[2022-10-28] MEDS ORDERED: ACETAMINOPHEN TAB 325 MG TAB PO ONE (09:58)
[2022-10-28] MEDS: APIXABAN 5 MG TAB PO SCH ×2 (10:37→21:58)
[2022-10-28] MEDS: METOPROLOL TARTRATE 25 MG TAB PO SCH ×2 (10:38→21:59)
[2022-10-28] MEDS: TAMSULOSIN 0.4 MG CAP.ER.24H PO SCH ×2 (10:38→21:59)
--- NOTE | 2022-10-28 12:57 | P.PN ---
Subjective Progress note Date of service 10/28/[address] Morris. Patient seen today [id number] after he had cardioversion. Which was done by Dr. Sullivan after he had his RADHA evaluation. Patient converted to sinus rhythm in the range of 59-57 bpm sinus. His blood pressure 106/60 and his oxygen saturations 97% on room air and respiratory rate 16/m. Patient continued on the monitoring and he was admitted to the synthetic resin operator floor from the ER module exam room 22. Today heparin PTT monitoring 43.8, troponin 1 was 0.103 on the October 25 today still elevated 0.084. Cardiology is aware of the results NT proBNP 1240. Lipid profile indicate triglyceride 53.6, total cholesterol 165, LDL 76.7, VLDL 10.7 to, HDL 77.6 and cholesterol HDL ratio 2.13 Physical exam [id number]: Patient is conscious alert oriented 3 denied any chest pain or shortness of breath and he had the cardioversion today feeling comfortable. Head was normocephalic and atraumatic pupil was equal reactive oropharynx was natural teeth scabs Neck was supple no JVD no thyromegaly no lymphadenopathy trachea midline with the previous surgery of the thyroid 2 for thyroid cancer as also history of lower esophagectomy for esophageal cancer and pulling up the esophagus up for repair with the underlying GERD disease. Chest was clear to auscultation percussion no wheezes no rhonchi's heart was regular sinus rhythm post conversion in the rate of 5750 9 bpm. And Abdomen is soft positive bowel sounds no organ enlargement Extremities no edema and positive pulses with a history of varicose veins bilateral Neurologically stable Psychologically stable. Assessment: #1 acute flutter with RVR and status post cardioversion. #2 abnormal troponin with the probability of mismatch of supply and demand versus non-STEMI IL will wait for the pain of the cardiology on this matter. #3 coronary artery disease and atherosclerotic heart disease with the underlying 1 stent. #4 hyperlipidemia controlled. #5 probability of a mild aortic stenosis. And valvular heart disease by the echocardiogram done by Dr. mina and. Plan: Status post cardioversion patient will be continued to monitor and medication will be adjusted by cardiology and for further planning depend on cardiology clearance and that time for discharge when the patient stable. Patient placed currently on amiodarone 200 mg twice a day. Cardiology eliquis anticoagulant 5 mg twice a day.. The thyroid levothyroxin has been adjusted by cardiology to 125 g by mouth daily however patient need to be discuss the changes with Dr. Fuentes with the history of thyroid cancer. His anxiety stable. Patient also on metoprolol for rate 25 mg twice a day the cardiology patient has been also on tamsulosin Flomax 0.4 mg by mouth twice a day by the urology of [facility]. And the heparin has been discontinued by cardiology. Objective - Vital Signs Vital signs: Vital Signs Temp 98.2 F 10/28/22 08:35 Pulse 57 L 10/28/22 10:00 Resp 16 10/28/22 09:45 BP 106/60 10/28/22 10:00 Pulse Ox 97 10/28/22 10:00 FiO2 Intake & Output 10/27/22 10/28/22 10/28/22 18:59 06:59 18:59 Intake Total 250 571.342 400 Output Total 1080 Balance 250 -508.658 400 Intake: IV 400 Intake, IV Titration 250 571.342 Amount Amiodarone 450 mg In 250 Dextrose 5% in Water 250 ml @ 0.5 MG/MIN 16.667 mls/hr IV .Q15H [facility] Rx#: [id number] Diltiazem 125 mg In 100 Sodium Chloride 0.9% 100 ml @ 10 MG/HR 10 mls/hr IV .[id number] [facility] Rx#: [id number] Heparin Sod,Pork in 0.45% 221.342 NaCl 25,000 unit In 0.45 % NaCl 1 250ml.bag @ 12 UNITS/KG/HR 8.818 mls/hr IV .Q24H [facility] Rx#: [id number] Sodium Chloride 0.9% 1, 50 000 ml @ 20 mls/hr IV . Q24H [facility] Rx#:[id number] Sodium Chloride 0.9% 1, 200 000 ml @ 50 mls/hr IV . Q20H [facility] Rx#:[id number] Output: Urine 1080 Other: Voiding Method Toilet Toilet Toilet Urinal Urinal - Labs CBC & Chem 7: 10/26/22 08:16 10/27/22 03:50 Labs: Abnormal Lab Results - Last 24 Hours (Table) 10/28/22 10/28/22 Range/Units 07:25 07:25 APTT 43.8 H (22.0-30.0) sec Troponin I 0.084 H* (0.000-0.034) ng/mL
[2022-10-28 13:48] VITALS: RESP 16
[2022-10-28] MEDS: SODIUM CHLORIDE 0.9% 1,000 ML IV SCH ×3 (17:00→17:48)
[2022-10-28] MEDS: MULTIVITAMINS, THERA 1 EACH TAB PO SCH (17:48)
[2022-10-28] MEDS: AMIODARONE 200 MG TAB PO SCH (21:58)
[2022-10-28] MEDS: SERTRALINE 50 MG TAB PO SCH (21:59)
[2022-10-29] MEDS: LEVOTHYROXINE 125 MCG TAB PO SCH (06:41)
[2022-10-29] MEDS: SODIUM CHLORIDE 0.9% 1,000 ML IV SCH ×3 (06:42→09:12)
[2022-10-29 08:29] LABS: African American GFR (CKD) >90 (>60 ml/min/1.73 sqM); Anion Gap 3 mmol/L; Blood Urea Nitrogen 12 mg/dL (9-20); Calcium 8.6 mg/dL (8.4-10.2); Carbon Dioxide 28 mmol/L (22-30); Chloride 107 mmol/L (98-107); Glucose 85 mg/dL (74-99); Non-African American GFR(CKD) 85 (>60 ml/min/1.73 sqM); Sodium 138 mmol/L (137-145)
[2022-10-29] MEDS: AMIODARONE 200 MG TAB PO SCH (09:16)
[2022-10-29] MEDS: METOPROLOL TARTRATE 25 MG TAB PO SCH (09:16)
[2022-10-29] MEDS: TAMSULOSIN 0.4 MG CAP.ER.24H PO SCH (09:16)
[2022-10-29] MEDS: MULTIVITAMINS, THERA 1 EACH TAB PO SCH (09:16)
[2022-10-29] MEDS: APIXABAN 5 MG TAB PO SCH (09:16)
[2022-10-29] MEDS ORDERED: HEPARIN SODIUM 1,000 UN/ML (10ML VL) IV PRN (11:30)
--- NOTE | 2022-10-29 12:05 | P.PN ---
Subjective Progress Note Date: 10/29/22 HISTORY OF PRESENT ILLNESS: Patient examined this morning at the bedside. He is s/p RADHA and CV with Dr. Castellanos. Patient is maintaining sinus mechanism this morning with a heart rate in the 40s. He denies chest pain or pressure. Denies SOB. Blood pressure stable. PHYSICAL EXAM: VITAL SIGNS: Reviewed. GENERAL: Well-developed in no acute distress. NECK: Supple. No JVD or thyromegaly LUNGS: Respirations even and unlabored. Lungs essentially clear to auscultation bilaterally. HEART: Regular rate and rhythm. S1 and S2 heard. EXTREMITIES: Normal range of motion. No clubbing or cyanosis. Peripheral pulses intact. No lower extremity edema ASSESSMENT: Typical atrial flutter with RVR, s/p RADHA and CV History of bladder cancer History of esophageal cancer Coronary artery disease with previous stent placement 2007 Sinus bradycardia PLAN: Discontinue metoprolol secondary to bradycardia. Continue with oral amio. Patients copay for Xarelto or Eliquis is around $300-400 a month. Initially patient did not want to pay this and plan was to switch him to Coumadin. Patient changed his mind this afternoon and is willing to pay copay for Eliquis. He may be discharged home this afternoon and follow up outpatient Nurse practitioner note has been reviewed by physician. Signing provider agrees with the documented findings, assessment, and plan of care. Objective - Vital Signs Vital signs: Vital Signs Temp 97.9 F 10/29/22 06:00 Pulse 72 10/29/22 08:00 Resp 16 10/29/22 08:00 BP 148/65 10/29/22 06:00 Pulse Ox 97 10/29/22 06:00 FiO2 Intake & Output 10/28/22 10/29/22 10/29/22 18:59 06:59 18:59 Intake Total 228 80 120 Output Total 250 240 400 Balance -22 -160 -280 Intake: Intake, IV Titration 80 Amount Sodium Chloride 0.9% 1, 80 000 ml @ 20 mls/hr IV . Q24H [facility] Rx#:[id number] Oral 228 120 Output: Urine 250 240 400 Other: Voiding Method Toilet Toilet Toilet Urinal Urinal Urinal - Labs CBC & Chem 7: 10/26/22 08:16 10/29/22 07:56
[2022-10-29 12:40] VITALS: BP 114/62; PULSE 49; TEMP 98.2
--- NOTE | 2022-10-29 13:34 | P.DS ---
Providers Date of admission: 10/25/22 21:41 Attending physician: Trung Fernandez Consults: 10/25/22 21:37 Consult Physician Urgent Consulting Provider: [facility] Consult Reason/Comments: acute palpiations, afib with rvr Do you want consulting provider notified?: Yes Primary care physician: Trung Fernandez Discharge summary Dictation 10/29/2022 Dictation admission diagnoses #1 acute onset of atrial flutter with RVR #2 elevated troponin with the underlying possible subendocardial ischemia noted STEMI DE versus mismatch supply and demand of the coronary artery #3 coronary atherosclerosis with 1 stent. #4 COPD. #5 hypothyroidism secondary to resection for thyroid cancer #6 lower esophageal cancer status post esophagectomy and [facility] #7 bladder cancer under treatment with [facility] urology. Discharge diagnoses: #1 atrial flutter with RVR resistant #2 status post RADHA and cardioversion on 10/28/2022. By Dr. Sullivan. Cardiology. #3 sinus bradycardia Lopressor has been discontinued by cardiology #4 abnormal troponin elevation with a pop probability of mismatch demand and supply of the coronary artery versus subendocardial ischemia non-STEMI DE #5 sinus bradycardia on discharge #6 on anticoagulant and eliquis 5 mg twice a day. Cardiology. #7 on amiodarone therapy cardiology. #8 COPD #9 TSH was suppressed with a due is 137 g and cardiology change it to 125 g once daily and patient to follow with Dr. Fuentes his masonry inspector for the follow-up. Dr. Mc does not calm to [facility]. #10 history of bladder cancer under treatment by urology of [facility]. Consultation: Sandra Garcia Krishan Procedure done by Dr. Zacarias shotblast operator. Imprisoned patient to the emergency room: Patient Senda from the office of health professor office to the ER at [facility] with the atrial flutter RVR with the associated shortness of breath patient subsequently treated in the ER was no improvement continued to have same problem started initially cardiazem drip followed by hypotension and subsequently seen by Dr. Baptiste in the module 22 ER exam and change it to amiodarone drip patient states 2 nights in the ER and then subsequently on Friday he was taken to RADHA and cardioversion and admitted to the floor histology manager. Hospital course as patient admitted post procedure did well and cardiology adjusted his medication taken off the Lopressor because of the significant bradycardia and he will be following with Dr. zacarias as outpatient meanwhile he elected to be on an requests and apparently insurance is not paying for it but he will pay for it i until seen by Dr. Mcmanus and making the decision of change it to other anticoagulant. Right graft reviewed his medication and he is currently on: Amiodarone 200 mg by mouth twice a day eliquis 5 mg twice a day He is on sertraline 50 mg daily at bedtime for anxiety chronic medication Tonsilloliths and 0.4 mg twice a day Levothyroxin 125 g once daily adjusted by cardiology due to the effect of atrial flutter with RVR and he will check with his doctor follow-up with the masonry inspector Dr. Jesusita saldivar. I given him a prescription for aspirin 81 mg tablet daily and atorvastatin 10 mg tablet daily in the cardiology agreed with that. On the physical exam on discharge: Head was normocephalic and atraumatic pupil was equal reactive oropharynx was negative with natural teeth neck was supple no JVD no thyromegaly no lymphadenopathy trachea midline Chest was clear to auscultation and percussion Heart is regular sinus rhythm with bradycardia. Abdomen is soft positive bowel sounds extremities no edema and he had history of varicose veins. Psychiatry stable Neurologically stable and he is ambulatory. Patient to the general condition stable for discharge Apparently clear by the cardiology for discharge and disposition discharge home today to follow-up with Dr. Zacraias, and Dr. Jesusita saldivar and will follow-up in the office this week or next week. Continue the same medication. Patient Condition at Discharge: Serious Plan - Discharge Summary Discharge Rx Participant: Yes New Discharge Prescriptions: New Apixaban [Eliquis] 5 mg PO BID #60 tab Amiodarone [Cordarone] 200 mg PO BID #180 tab Multivitamins, Thera [Multivitamin (formulary)] 1 each PO DAILY tab Apixaban [Eliquis] 5 mg PO BID tab Levothyroxine Sodium [Synthroid] 125 mcg PO DAILY@0700 #30 tab Continue Tamsulosin [Flomax] 0.4 mg PO BID Sertraline [Zoloft] 50 mg PO HS Multivitamins, Thera [Multivitamin (formulary)] 1 tab PO DAILY Discontinued Levothyroxine Sodium [Synthroid] 137 mcg PO DAILY Discharge Medication List Sertraline [Zoloft] 50 mg PO HS 06/20/15 [History] Tamsulosin [Flomax] 0.4 mg PO BID 06/20/15 [History] Multivitamins, Thera [Multivitamin (formulary)] 1 tab PO DAILY 06/19/17 [History] Amiodarone [Cordarone] 200 mg PO BID #180 tab 10/29/22 [Rx] Apixaban [Eliquis] 5 mg PO BID tab 10/29/22 [Rx] Apixaban [Eliquis] 5 mg PO BID #60 tab 10/29/22 [Rx] Levothyroxine Sodium [Synthroid] 125 mcg PO DAILY@0700 #30 tab 10/29/22 [Rx] Multivitamins, Thera [Multivitamin (formulary)] 1 each PO DAILY tab 10/29/22 [Rx] Follow up Appointment(s)/Referral(s): Forrest Zacarias MD [STAFF PHYSICIAN] - 1 Week Trung Fernandez MD [Primary Care Provider] - 1-2 days
--- NOTE | 2022-10-29 14:56 | CDI ---
Documentation Clarification Form Date: 10/29/2022 2:49:21 PM From: Margarita Dumas CCS, CCDS Admit Date: 10/25/2022 9:41:00 PM Patient Name: Du Herr Visit Number: [id number] Discharge Date: 10/29/2022 2:29:00 PM ATTENTION: The Clinical Documentation Specialists (CDI) and [facility] Coding Staff appreciate your assistance in clarifying documentation. Please respond to the clarification below the line at the bottom and electronically sign. The CDI & [facility] Coding staff will review the response and follow-up if needed. Please note: Queries are made part of the Legal Health Record. If you have any questions, please contact the author of this message via ITS. Dr. Trung Fernandez: The following is documented in the Attending Physician Progress Notes and Discharge Summary: Abnormal troponin elevation with a pop probability of mismatch demand and supply of the coronary artery versus subendocardial ischemia Non-STEMI. Additional clarification regarding the type of IA is requested. History/Risk Factors per the 10/26 H/P: CAD with stent, Esophageal an Thyroid Cancer status post surgeries, Bilateral varicose veins lower extremities, COPD. Clinical Indicators: Presented to the ED on 10/25 with Palpitations, sent to the ED by his help desk analyst. Admit with Atrial Flutter with RVR 10/25 VS: P 130 (irregular), BP 105/72 10/25 Troponin: 0.098, 0.103 10/25 EKG Results: R 128 Atrial flutter/tachycardia w/RVR. RBBB. ST Depression consider subendocardial injury. Treatment 10/25: Cardiology Consult, IV Cardizem Drip Bolus x1, IV Cardizem (stopped due to hypotension), IV Heparin Drip. Please clarify the type of IA, if known: [ ] NSTEMI (type 1) [ ] Type II IA due to (please specify etiology) [ ] Unable to determine [x ] Other Condition, please specify (Template Last Revised: December 2020) please check with the help desk analyst who was taking care of her on admission and a failure to my note but the cardiology did not make a decision please check with him MTDD
[2022-10-29] MEDS ORDERED: HEPARIN SOD,PORK IN 0.45% NACL 25,000 UNIT in 0.45% NACL 1 250ML.BAG IV SCH (17:00)
[2022-10-29] MEDS ORDERED: HEPARIN SODIUM 1,000 UN/ML (10ML VL) IV ONE (17:00)
[2022-10-29] MEDS ORDERED: RIVAROXABAN 20 MG TAB PO SCH (17:30)
[2022-10-29] MEDS ORDERED: WARFARIN 10 MG TAB PO ONE (18:00)
[2022-10-29] MEDS ORDERED: WARFARIN 5 MG TAB PO ONE (18:00)
[2022-10-29] MEDS ORDERED: APIXABAN 5 MG TAB PO SCH (21:00)
--- NOTE | 2022-11-08 08:00 | CDI ---
Documentation Clarification Form Date: 11/08/2022 7:52:11 AM From: Margarita Dumas CCS, CCDS Admit Date: 10/25/2022 9:41:00 PM Patient Name: Du Herr Visit Number: [id number] Discharge Date: 10/29/2022 2:29:00 PM ATTENTION: The Clinical Documentation Specialists (CDI) and [facility] Coding Staff appreciate your assistance in clarifying documentation. Please respond to the clarification below the line at the bottom and electronically sign. The CDI & [facility] Coding staff will review the response and follow-up if needed. Please note: Queries are made part of the Legal Health Record. If you have any questions, please contact the author of this message via ITS. Dr. Manny Baptiste: The following is documented in the Attending Physician Progress Notes and Discharge Summary: Abnormal troponin elevation with a pop probability of mismatch demand and supply of the coronary artery versus subendocardial ischemia Non-STEMI. 10/27 Attending Progress Note: NT pro-BMP was not done we'll order it to clarify if there is any evidence of associated congestive heart failure with a fast heartbeat. Additional clarification regarding the type of CO is requested. History/Risk Factors per the 10/26 H/P: CAD with stent, Esophageal an Thyroid Cancer status post surgeries, Bilateral varicose veins lower extremities, COPD. Clinical Indicators: Presented to the ED on 10/25 with Palpitations, sent to the ED by his manufacturing analyst. Admit with Atrial Flutter with RVR 10/25 VS: P 130 (irregular), BP 105/72 10/25 Troponin: 0.098, 0.103 10/25 EKG Results: R 128 Atrial flutter/tachycardia w/RVR. RBBB. ST Depression consider subendocardial injury. 10/28 RADHA & Cardioversion: Normal appearance of the left atrial appendage. Normal size with borderline normal systolic function. Calcified aortic valve with reduced opening. Mild mitral with Moderate Tricuspic Regurgitation. Aneurysmal intra-atrial septum with no shunting. Treatment 10/25: Cardiology Consult, IV Cardizem Drip Bolus x1, IV Cardizem (stopped due to hypotension), IV Heparin Drip. Please clarify the type of CO, if known: [ ] NSTEMI (type 1) [ ] NSTEMI ruled out [ ] Type II CO due to (please specify etiology): [ ] Mismatch demand & supple of the coronary artery due to (please specify): [ ] Unable to determine [ ] Other Condition, please specify (Template Last Revised: December 2020) Unable to determine MTDD
== END 2022-10-29 14:29 | disposition home or self-care (01) | DRG 309 ==
LOC: EC 17:01 → 1SOBS 21:41 → 3SCARD 10-26 00:19
PROVIDERS: ADMIT Internal Medicine; ATTEND Internal Medicine
PROC: 5A2204Z Restoration of Cardiac Rhythm, Single (ICD-10-PCS; principal; 2022-10-28 09:00)
PROC: B246ZZ4 Ultrasonography of Right and Left Heart, Transesophageal (ICD-10-PCS; principal; 2022-10-28 09:00)
DX: I48.3 Typical atrial flutter (principal); I25.3 Aneurysm of heart; Z79.01 Long term (current) use of anticoagulants; E78.5 Hyperlipidemia, unspecified; E89.0 Postprocedural hypothyroidism; F41.9 Anxiety disorder, unspecified; I08.3 Combined rheumatic disorders of mitral, aortic and tricuspid valves; I25.10 Atherosclerotic heart disease of native coronary artery without angina pectoris; I25.2 Old myocardial infarction; I95.9 Hypotension, unspecified; I47.1 Supraventricular tachycardia; I48.91 Unspecified atrial fibrillation; S49.92XA Unspecified injury of left shoulder and upper arm, initial encounter; I83.93 Asymptomatic varicose veins of bilateral lower extremities; J44.9 Chronic obstructive pulmonary disease, unspecified; R00.1 Bradycardia, unspecified; C67.9 Malignant neoplasm of bladder, unspecified; Z79.890 Hormone replacement therapy; Z79.899 Other long term (current) drug therapy; Z80.8 Family history of malignant neoplasm of other organs or systems; Z80.0 Family history of malignant neoplasm of digestive organs; Z85.850 Personal history of malignant neoplasm of thyroid; Z85.01 Personal history of malignant neoplasm of esophagus; Z95.5 Presence of coronary angioplasty implant and graft; M19.90 Unspecified osteoarthritis, unspecified site; Z91.81 History of falling; K21.9 Gastro-esophageal reflux disease without esophagitis; Z86.14 Personal history of Methicillin resistant Staphylococcus aureus infection; Z88.5 Allergy status to narcotic agent
CPT/HCPCS: 36415; 71046; 80048; 80053; 80061; 83735; 83880; 84439; 84443; 84484; 85025; 85610; 85730; 92960; 93005; 93308; 93312; 93320; 93325; 96365; 96366; 96367; 96368; 96376; 99291

== ENCOUNTER 2023-01-28 10:25 | Day surgery (SDC) | payer MEDICARE ==
[~2023-01-28 10:25] MED LIST changes: +LIDOCAINE 1% (10MG/ML) FOR IV START INTRADERMA PRN; -LIDOCAINE 1% 20 ML VIAL (10MG/ML) FOR IV START INTRADERMA ONE; -LIDOCAINE 1% INJ 10MG/ML (20 ML MDV) ONE; -PROPOFOL 10 MG/ML 20 ML VIAL IV ONE
[2023-01-28 10:46] VITALS: TEMP 97
[2023-01-28] MEDS ORDERED: LIDOCAINE 1% (10MG/ML) FOR IV START INTRADERMA ONE (10:47)
[2023-01-28 10:53] LABS: Glucose,Whole Blood 85 mg/dL (70-110)
[2023-01-28] MEDS ORDERED: PROPOFOL 10 MG/ML 20 ML VIAL IV ONE (11:06)
--- NOTE | 2023-01-28 11:30 | P.PCN ---
Date of Procedure: 01/28/23 Procedure(s) Performed: BRIEF HISTORY: Patient is a 82-year-old, pleasant, whites male scheduled for an upper endoscopy as a part of evaluation of chronic persistent nausea and epigastric discomfort for the last 3 months duration. He has history of distal esophageal adenocarcinoma diagnosed in 2014 and is status post distal esophagectomy with gastric pull-through at [facility].. PROCEDURE PERFORMED: Esophagogastroduodenoscopy with biopsy PREOPERATIVE DIAGNOSIS: Chronic persistent nausea of several months duration. IV sedation per anesthesia. PROCEDURE: After informed consent was obtained, the patient was brought into the endoscopy unit. IV sedation was administered by Anesthesia under continuous monitoring. Initially the Olympus GIF-140 video endoscope was inserted into the mouth. Esophagus intubated without any difficulty. It was gradually advanced into the stomach and duodenum and carefully examined. The bulb and the second part of the duodenum appeared normal. The scope at this time was withdrawn to the stomach, adequately insufflated with air, and upon careful examination, mucosa of the antrum, body, had mild gastritis and biopsies were done from this area. There was evidence of gastric pull-through surgery and distal esophagectomy. The scope was then withdrawn into the esophagus. The GE anastomosis was located at 25 cm from the incisors that appeared widely patent with no erosions or ulcerations seen. The proximal cervical esophagus appeared normal and the patient tolerated the procedure well. IMPRESSION: 1. Widely patent esophagogastric anastomosis at 25 cm from the incisors. 2. Mild gastritis. RECOMMENDATIONS: The findings of this examination were discussed with the patient as well as his family. He was advised to follow with the biopsy results. Continue omeprazole and antiemetics as needed..
[2023-01-28 11:53] VITALS: BP 112/64; PULSE 50; RESP 17
== END 2023-01-28 12:10 | disposition home or self-care (01) ==
LOC: ORWHC2ENDO 10:25
PROVIDERS: ATTEND Internal Medicine Gastroenterology
DX: K29.50 Unspecified chronic gastritis without bleeding (principal); K21.9 Gastro-esophageal reflux disease without esophagitis; I48.91 Unspecified atrial fibrillation; Z90.49 Acquired absence of other specified parts of digestive tract; Z87.891 Personal history of nicotine dependence; Z79.899 Other long term (current) drug therapy
CPT/HCPCS: 88305; 43239; J2704

== ENCOUNTER → 2023-02-11 | Outpatient (CLI) | payer MEDICARE ==
--- NOTE | 2023-02-14 17:29 | MR ---
EXAMINATION TYPE: MR pancreas wo/w con DATE OF EXAM: 02/11/2023 10:18 PM INDICATION: Patient age:Male; 82 years old; Reason for study: K86.2; PHH. Constant nausea COMPARISON: MR abdomen 04/01/2022. CT abdomen pelvis 05/21/2021, MR CP 03/17/2021 TECHNIQUE: Multiplanar multi-sequence imaging was performed without contrast. Post contrast imaging was performed. Post IV contrast subtraction images were also submitted for review. IV Contrast: 8 cc Gadavist FINDINGS: LOWER CHEST: No gross irregularity. ABDOMEN Liver: Scattered high T2 signal cysts some of which are subcentimeter are present. There are scattere d wedge-shaped peripheral probable areas of shunting noted along the anterior right hepatic lobe. Ser ies 1001 image 432 and 397. Gallbladder and Bile ducts: The common bile duct measures up to 6 mm common hepatic duct measures up to 5 mm. The gallbladder surgically absent. Pancreas: No evidence of ductal dilation. There is stable pancreatic body high T2 signal cysts measur ing in totality 12 x 11 mm on coronal imaging when comparing to prior MRCP given differences in slice selection this is similar. This is either to 2 separate cysts measuring 6 mm each versus one cyst wi th septation no abnormal postcontrast enhancement given the limitations of this exam with motion. No suspicious pancreatic mass. Spleen: Stable splenic lesion with peripheral low T2 signal for corresponding with calcification on CT. with most compatible with a splenic pseudocyst Adrenal glands: Unremarkable. Kidneys: Right superior pole renal cyst measuring 5.3 cm. Additional subcentimeter renal cysts are pr esent bilaterally Stomach and Bowel: Suspected postsurgical changes with esophagectomy with gastric pull-through. Peritoneum: No evidence of pneumoperitoneum or free fluid. Vasculature: Unremarkable. No aortic aneurysm. Musculoskeletal: The osseous structures appear intact. Lymph Nodes: No gross evidence for lymphadenopathy. Abdominal wall: Unremarkable. IMPRESSION: 1. No evidence for acute abdominal process to explain the patient's nausea however there is postsurg ical changes with esophagectomy with gastric pull-through. 2. Stable pancreatic body cysts measuring up 6 mm each. No suspicious pancreatic mass. 3. Simple hepatic and renal cysts. 4. Stable splenic probable pseudocyst.
== END | disposition home or self-care (01) ==
LOC: RADMRIMAIN 20:00
PROVIDERS: ATTEND Internal Medicine Gastroenterology
DX: K86.2 Cyst of pancreas (principal); K76.89 Other specified diseases of liver; N28.1 Cyst of kidney, acquired; K86.89 Other specified diseases of pancreas
CPT/HCPCS: 74183; A9585

== ENCOUNTER → 2023-03-21 | Outpatient (CLI) | payer MEDICARE ==
--- NOTE | 2023-03-21 12:43 | XR ---
EXAMINATION TYPE: XR shoulder limited bilateral DATE OF EXAM: 03/21/2023 COMPARISON: NONE HISTORY: Pain TECHNIQUE: Three views are submitted. FINDINGS: The osseous structures are intact. There is no acute fracture or dislocation. Atrophic arthropathy o f the AC joint bilaterally. Calcified granuloma left upper lobe. Visualized lung cooney are otherwise clear. Mild diffuse osteopenia. IMPRESSION: 1. Bilateral moderate to severe AC joint arthropathy. Spurs involving the left acromion could result in impingement correlate for rotator cuff disease.
--- NOTE | 2023-03-21 12:44 | XR ---
EXAMINATION TYPE: XR cervical spine comp DATE OF EXAM: 03/21/2023 COMPARISON: NONE HISTORY: Pain TECHNIQUE: Four views are submitted. FINDINGS: The odontoid is intact. There are no compression deformities. The prevertebral soft tissue structur es are within normal limits. Multilevel moderate to severe degenerative disc disease most marked at C5-6 and C6-C7. Large anterior hypertrophic spurs are seen. Surgical clips in the soft tissues of the neck. Calcified granuloma left upper lobe. IMPRESSION: 1. Multilevel moderate to severe degenerative disc disease most marked at C5-C6 and C6-C7. Bilateral foraminal encroachment noted..
== END | disposition home or self-care (01) ==
LOC: RADXRMAIN 11:16
PROVIDERS: ATTEND Internal Medicine
DX: M50.322 Other cervical disc degeneration at C5-C6 level (principal); M19.012 Primary osteoarthritis, left shoulder; M19.011 Primary osteoarthritis, right shoulder; M81.0 Age-related osteoporosis without current pathological fracture
CPT/HCPCS: 72050

== ENCOUNTER → 2023-03-28 | Outpatient (CLI) | payer MEDICARE ==
[2023-03-28 21:19] LABS: Anti-DNA, DS unit <1.0 IU/mL; DNA Double-Stranded Negative (Negative)
== END | disposition home or self-care (01) ==
LOC: LABWHC1 10:45
PROVIDERS: ATTEND Internal Medicine
DX: M31.6 Other giant cell arteritis (principal); M35.9 Systemic involvement of connective tissue, unspecified
CPT/HCPCS: 36415; 82550; 85652; 86038; 86225

== ENCOUNTER 2023-10-10 09:03 | Emergency (ER) | payer MEDICARE ==
[2023-10-10 09:15] VITALS: TEMP 97.5
[2023-10-10] MEDS ORDERED: LIDOCAINE 4% PATCH TOPICAL ONE (09:41)
--- NOTE | 2023-10-10 10:22 | ED ---
General Adult HPI - General Chief complaint: Back Pain/Injury Stated complaint: Back pain Time Seen by Provider: 10/10/23 09:12 Source: patient, RN notes reviewed, old records reviewed Mode of arrival: ambulatory Limitations: no limitations - History of Present Illness Initial comments: Patient is an 82-year-old male presents emergency Department complaining of chest pain. Fell 1 week ago after getting up from his chair and landed on a table. He continues to have mid back pain. Pain is located over the left posterior ribs. Has an abrasion at the site. Pain on deep inspiration and with movement. Concerned he may have broken a rib. Presents for further evaluation. Does have a significant cardiac history. His no longer on blood thinners. He denies hitting his head or loss of consciousness. No other acute complaints. Fell 1 week ago. Denies any fevers, productive cough. - Related Data Home Medications Medication Instructions Recorded Confirmed Sertraline [Zoloft] 50 mg PO HS 06/20/15 01/28/23 Tamsulosin [Flomax] 0.4 mg PO HS 06/20/15 01/28/23 Amiodarone [Cordarone] 100 mg PO QAM 01/23/23 01/28/23 Atorvastatin [Lipitor] 10 mg PO HS 01/23/23 01/28/23 Chemo Bcg See Protocol IV WEEKLY 01/28/23 Previous Rx's Medication Instructions Recorded Levothyroxine Sodium [Synthroid] 125 mcg PO DAILY@0700 #30 tab 10/29/22 Multivitamins, Thera [Multivitamin 1 each PO DAILY tab 10/29/22 (formulary)] Rivaroxaban [Xarelto] 20 mg PO DAILY@1700 #30 tab 10/29/22 Lidocaine 5% Patch [Lidoderm 5% 1 patch TOPICAL DAILY PRN 14 Days 10/10/23 Patch] #14 patch Allergies Allergy/AdvReac Type Severity Reaction Status Date / Time No Known Allergies Allergy Verified 10/10/23 09:10 Review of Systems ROS Statement: Those systems with pertinent positive or pertinent negative responses have been documented in the HPI. Review of Systems: CONST: Denies fever EYES: Denies blurry vision ENT: Denies nasal congestion C/V: Denies Chest pain RESP: Denies shortness of breath GI: Denies abdominal pain : Denies dysuria SKIN: Denies rash. MSK: Endorses left posterior rib pain NEURO: Denies headache ROS Other: All systems not noted in ROS Statement are negative. 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 ESOPHAGEAL CANCER WITH ESOPHOGECTOMY (2014), THYROID CANCER (1997)., HYPOGLYCEMIA, INFECTED BRAIN LESION (2016-REMOVED). , OCCASIONAL GERD., CURRENTLY HAVING PAIN AFTER EATING AND NAUSEA.states did not have mrsa Last Myocardial Infarction Date:: 2007 History of Any Multi-Drug Resistant Organisms: MRSA Date of last positivie culture/infection: 1997 MDRO Source:: POST -OP THYROID Past Surgical History: Cholecystectomy, Heart Catheterization With Stent, Hernia Repair Additional Past Surgical History / Comment(s): CARDIOVERSION IN OCTOBER 2022. LEFT KNEE ARTHROSCOPY. THYROIDECTOMY (X2 SURGERIES), ESOPHOGECTOMY (JUL 2015) , BRAIN LESION (OCT 2015). BILATERAL CATARACT REMOVAL/LENS. COLONOSCOPY Past Anesthesia/Blood Transfusion Reactions: No Reported Reaction Date of Last Stent Placement:: 2007 Past Psychological History: Anxiety Smoking Status: Former smoker Past Alcohol Use History: None Reported Past Drug Use History: None Reported - Past Family History Father Family Medical History: Cancer Additional Family Medical History / Comment(s): PANCREATIC CANCER. Brother(s) Family Medical History: Blood Disorder, Cancer Additional Family Medical History / Comment(s): BRO #1-FACTOR V. BRO # 2-ORAL CA. FATHER-PANCREATIC CA General Exam - General Exam Comments Initial Comments: General: Appears in no acute distress. HEAD: Normal with no signs of head trauma. EYES: PERRLA, EOMI, conjunctiva normal, no discharge. ENT: Hearing grossly intact, normal oropharynx. RESPIRATORY: Clear breath sounds bilaterally. No wheezes, rales, or rhonchi. C/V: Regular rate and rhythm. S1 and S2 auscultated, peripheral pulses 2+ and intact throughout ABD: Abd is soft, nontender, nondistended EXT: Normal range of motion, no obvious deformity. Tenderness palpation over posterior left inferior ribs. Abrasion at the site. No evidence of flail chest. SKIN: No rashes or lesions observed on exposed skin. NEURO: Alert and oriented x 4. Limitations: no limitations Course Vital Signs 12/22/23 09:07 Temperature 97.5 F L Pulse Rate 73 Respiratory 20 Rate Blood Pressure 123/72 O2 Sat by Pulse 98 Oximetry Medical Decision Making - Medical Decision Making Was pt. sent in by a medical professional or institution (, HALLEY, FIXED CAPITAL CLERK, urgent care, hospital, or alf...) When possible be specific @ -No Did you speak to anyone other than the patient for history (EMS, parent, family, police, friend...)? What history was obtained from this source @ -No Did you review nursing and triage notes (agree or disagree)? Why? @ -I reviewed and agree with nursing and triage notes Were old charts reviewed (outside hosp., previous admission, EMS record, old EKG, old radiological studies, urgent care reports/EKG's, alf records)? Report findings @ -Old charts reviewed Differential Diagnosis (chest pain, altered mental status, abdominal pain women, abdominal pain men, vaginal bleeding, weakness, fever, dyspnea, syncope, headache, dizziness, GI bleed, back pain, seizure, CVA, palpatations, mental hea lth, musculoskeletal)? @ -Differential Musculoskeletal Muscular strain, contusion, ligament sprain, fracture, arthritis, septic arthritis, bursitis, cellulitis, muscle spasm, nerve compression, DVT, arterial occlusion, herpes zoster, electrolyte abnormality, tumor.... This is not meant to be in all inclusive list EKG interpreted by me (3pts min.). @ -None done X-rays interpreted by me (1pt min.). @ -X-ray negative for any obvious fracture. CT interpreted by me (1pt min.). @ -None done U/S interpreted by me (1pt. min.). @ -None done What testing was considered but not performed or refused? (CT, X-rays, U/S, labs)? Why? @ -None What meds were considered but not given or refused? Why? @ -None Did you discuss the management of the patient with other professionals (professionals i.e. HALLEY Maynard, FIXED CAPITAL CLERK, lab, RT, psych nurse, social security benefits interviewer, oak tanner, teacher, custom protection officer, piano case maker)? Give summary @ -No Was smoking cessation discussed for >3mins.? @ -No Was critical care preformed (if so, how long)? @ -No Were there social determinants of health that impacted care today? How? (Homelessness, low income, unemployed, alcoholism, drug addiction, transportation, low edu. Level, literacy, decrease access to med. care, correction, rehab)? @ -No Was there de-escalation of care discussed even if they declined (Discuss DNR or withdrawal of care, Hospice)? DNR status @ -No What co-morbidities impacted this encounter? (DM, HTN, Smoking, COPD, CAD, Cancer, CVA, ARF, Chemo, Hep., AIDS, mental health diagnosis, sleep apnea, morbid obesity)? @ -None Was patient admitted / discharged? Hospital course, mention meds given and route, prescriptions, significant lab abnormalities, going to OR and other pertinent info. @ -Based on the patient's presentation and physical exam, presents with left sided rib pain. Fell 1 week ago. Concern for rib contusion versus rib fracture. Cannot rule out underlying pneumothorax or other lung injury. We will obtain chest x-ray. Patient will be given a lidocaine patch for pain control. Vital signs within acceptable limits. Chest x-ray reveals no evidence of acute cardio phone process or fracture. I discussed results with the patient. Diagnosis is rib contusion. He'll be given lidocaine patches for home. He already has and some spirometry at home. He'll be discharged home at this time. Strict return precautions discussed including signs or symptoms of pneumonia. I will provide the patient with a prescription for lidocaine patches. I instructed the patient to follow up with their PCP in the next 1-3 days. I explained that the patient should return to the emergency department if they experience any worsening symptoms. Strict return precautions were discussed with the patient. The patient expressed understanding of these instructions. I answered all questions that the patient had. The patient was discharged home in good condition with their prescriptions and follow up information. Undiagnosed new problem with uncertain prognosis? @ -No Drug Therapy requiring intensive monitoring for toxicity (Heparin, Nitro, Insulin, Cardizem)? @ -No Were any procedures done? @ -No Diagnosis/symptom? @ -Rib contusion Acute, or Chronic, or Acute on Chronic? @ -Acute Uncomplicated (without systemic symptoms) or Complicated (systemic symptoms)? @ -Complicated Side effects of treatment? @ -none Exacerbation, Progression, or Severe Exacerbation] @ -no Poses a threat to life or bodily function? @ -no Disposition Clinical Impression: Rib contusion Disposition: HOME SELF-CARE Condition: Good Instructions (If sedation given, give patient instructions): Rib Contusion (ED), How to Use an Incentive Spirometer (ED) Prescriptions: Lidocaine 5% Patch [Lidoderm 5% Patch] 1 patch TOPICAL DAILY PRN 14 Days #14 patch PRN Reason: Pain Is patient prescribed a controlled substance at d/c from ED?: No Referrals: Trung Fernandez MD [Primary Care Provider] - 1-2 days Time of Disposition: 11:09
--- NOTE | 2023-10-10 10:58 | XR ---
PA chest with left rib series. DATE: 10/10/2023. COMPARISON: 10/25/2022. MEDICAL HISTORY: Rib pain. FINDINGS: Hyperlucency seen compatible with emphysema. The lungs are clear. There is no pneumothorax. The cardiac silhouette and pulmonary vessels are within normal limits. There is a large hiatal hernia. No displaced rib fractures are seen. IMPRESSION: No acute radiographic abnormality.
[2023-10-10 11:47] VITALS: BP 133/68; PULSE 50; RESP 16
== END 2023-10-10 11:30 | disposition home or self-care (01) ==
LOC: EC 09:03
DX: S20.212A Contusion of left front wall of thorax, initial encounter (principal); I48.91 Unspecified atrial fibrillation; I25.2 Old myocardial infarction; K21.9 Gastro-esophageal reflux disease without esophagitis; J44.9 Chronic obstructive pulmonary disease, unspecified; F41.9 Anxiety disorder, unspecified; Z87.891 Personal history of nicotine dependence; Z79.899 Other long term (current) drug therapy; W19.XXXA Unspecified fall, initial encounter
CPT/HCPCS: 99283

== ENCOUNTER → 2023-12-18 | Outpatient (CLI) | payer MEDICARE ==
--- NOTE | 2023-12-19 07:15 | CT ---
EXAMINATION TYPE: CT brain wo con DATE OF EXAM: 12/18/2023 COMPARISON: 11/17/2015 INDICATION: headaches DLP: 1239 mGycm, Automated exposure control for dose reduction was used. CONTRAST: None CT of the brain is performed utilizing 3 mm thick sections through the posterior fossa and 3 mm thick sections through the remaining calvarium. Study is performed within 24 hours of arrival to the hosp ital. No abnormal hyperdensity is present to suggest an acute intracranial hemorrhage. No mass lesion is evident. No acute infarcts are evident. Chronic white matter changes are present within the deep white matter is more focal in the right posterior centrum semiovale. However, this area was present previously no significant interval changes. Ventricles and sulci are somewhat prominent for the patient age. Paranasal sinuses and mastoid air cells within the [id number] are clear. IMPRESSION: 1. Chronic white matter ischemic-type changes, present previously. 2. No acute intracranial process. Follow-up MRI can be performed as clinically indicated.
--- NOTE | 2023-12-19 07:17 | CT ---
EXAMINATION TYPE: CT sinus wo con DATE OF EXAM: 12/18/2023 COMPARISON: None HISTORY: headaches CT DLP: 704 mGycm CONTRAST: 0 mL of Isovue 300 The paranasal sinuses are examined in the axial plane at 2 mm thick sections. Reconstructed images i n the coronal plane were obtained. There is dental amalgam scatter artifact The maxillary sinuses are clear. The ethmoid air cells are clear. The sphenoid sinuses are clear. The frontal sinuses are clear. Bilateral ben bullosa are present. Right septal deviation is present. The ostiomeatal units are patent. IMPRESSION: 1. No acute or chronic sinusitis changes.
== END | disposition home or self-care (01) ==
LOC: RADCTMAIN 15:46
PROVIDERS: ATTEND Otolaryngology
DX: I67.82 Cerebral ischemia (principal); R51.9 Headache, unspecified; J32.0 Chronic maxillary sinusitis
CPT/HCPCS: 70450; 70486

== ENCOUNTER → 2024-04-06 | Outpatient (CLI) | payer MEDICARE | END | disposition home or self-care (01) | LOC: LABWHC1 08:58 | PROVIDERS: ATTEND Internal Medicine Cardiovascular Disease | DX: I35.0 Nonrheumatic aortic (valve) stenosis (principal); I45.10 Unspecified right bundle-branch block; R94.31 Abnormal electrocardiogram [ECG] [EKG] | CPT/HCPCS: 36415; 93005 ==

== ENCOUNTER → 2024-04-09 | Outpatient (CLI) | payer MEDICARE ==
--- NOTE | 2024-04-09 18:56 | CA ---
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 67 - 155 / 56 - 104 cm??? LV Systolic Volume MOD BP 58.4 cm??? 22 - 58 / 19 - 49 cm??? LV Ejection Fraction MOD BP 64.0 % >= 55 % LV Cardiac Index MOD BP 2983.3 cm???/min???m??? LV Diastolic Volume MOD 4C 186.5 cm??? LV Systolic Volume MOD 4C 67.5 cm??? LV Ejection Fraction MOD 4C 63.8 % LV Cardiac Index MOD 4C 3415.4 cm???/min???m??? LV Diastolic Length 4C 9.1 cm LV Systolic Length 4C 7.2 cm LV Diastolic Volume MOD 2C 142.1 cm??? LV Systolic Volume MOD 2C 48.2 cm??? LV Ejection Fraction MOD 2C 66.1 % LV Cardiac Index MOD 2C 2695.3 cm???/min???m??? LV Diastolic Length 2C 9.1 cm LV Systolic Length 2C 6.8 cm LA Volume 63.3 cm??? 18 - 58 / 22 - 52 cm??? LA Volume Index 33.0 cm???/m??? 16 - 28 cm???/m??? Ascending Aorta Diameter 3.6 cm DOPPLER AV Peak Velocity 176.3 cm/s AV Peak Gradient 12.4 mmHg AV Mean Velocity 129.5 cm/s AV Mean Gradient 7.4 mmHg AV Velocity Time Integral 35.5 cm LVOT Peak Velocity 97.5 cm/s LVOT Peak Gradient 3.8 mmHg LVOT Velocity Time Integral 26.1 cm LVOT Stroke Volume 85.5 cm??? LVOT Stroke Volume Index 44.1 ml/m??? LVOT Cardiac Index 2452.9 cm???/min???m??? AV Area Cont Eq vti 2.4 cm??? AV Area Cont Eq pk 1.8 cm??? MV Area PHT 3.9 cm??? Mitral E Point Velocity 71.5 cm/s Mitral A Point Velocity 57.5 cm/s Mitral E to A Ratio 1.2 MV Deceleration Time 194.8 ms TR Peak Velocity 245.1 cm/s TR Peak Gradient 24.0 mmHg Right Atrial Pressure 15.0 mmHg Pulmonary Artery Systolic Pressu 39.0 mmHg Right Ventricular Systolic Press 39.0 mmHg FINDINGS Left Ventricle Left ventricular ejection fraction is estimated at 60-65 %. Mildly increased left ventricular diastolic volume. Left ventricular wall thickness normal. No obvious regional wall motion abnormalities. Right Ventricle Normal right ventricular size and function. Mildly elevated right ventricular systolic pressure. Right Atrium Right atrium not well visualized. Left Atrium Mildly increased left atrial volume. Mitral Valve Mitral valve thickened. No evidence for mitral valve prolapse. No mitral stenosis. Trace mitral regurgitation. Aortic Valve Aortic valve not well visualized. Mild aortic stenosis was identified Tricuspid Valve Structurally normal tricuspid valve. No tricuspid stenosis. Trace to mild tricuspid regurgitation. Pulmonic Valve Pulmonic valve not well visualized. Pericardium No pericardial effusion. Aorta Normal size aortic root and proximal ascending aorta. CONCLUSIONS Normal LV systolic function and RV systolic function Aortic sclerosis with mild aortic stenosis Mild pulmonary hypertension Previewed by: Dr. Bravo Sims MD (Electronically Signed) Final Date: 09 April 2024 18:55
== END | disposition home or self-care (01) ==
LOC: RADECHMAIN 15:28
PROVIDERS: ATTEND Internal Medicine Cardiovascular Disease
DX: I35.9 Nonrheumatic aortic valve disorder, unspecified (principal); I27.20 Pulmonary hypertension, unspecified; I70.0 Atherosclerosis of aorta; I35.0 Nonrheumatic aortic (valve) stenosis
CPT/HCPCS: 93306

== ENCOUNTER → 2024-07-14 | Day surgery (SDC) | payer MEDICARE ==
[2024-07-12 09:01] VITALS: BMI 20.9
[2024-07-14] MEDS: IV FLUID CONTINUATION 500 ML IV ONE (09:26)
[2024-07-14 09:39] VITALS: PULSE 56; RESP 16; TEMP 97.7
[2024-07-14] MEDS: BENZOCAINE SPRAY 1 EACH MM ONE (10:28)
[2024-07-14] MEDS: MIDAZOLAM 2 MG/2 ML VIAL IVP ONE (10:35)
[2024-07-14] MEDS: fentaNYL (PF) 50 MCG/ML 2 ML AMP IVP ONE (10:35)
[2024-07-14 11:59] LABS: African American GFR (CKD) >90 (>60 ml/min/1.73 sqM); Anion Gap -1 mmol/L; Blood Urea Nitrogen 19 mg/dL (9-20); Calcium 8.7 mg/dL (8.4-10.2); Carbon Dioxide 33 mmol/L (22-30); Chloride 105 mmol/L (98-107); Glucose 88 mg/dL (74-99); Non-African American GFR(CKD) 82 (>60 ml/min/1.73 sqM); Potassium 4.4 mmol/L (3.5-5.1); Sodium 137 mmol/L (137-145)
--- NOTE | 2024-07-14 13:28 | P.TEE ---
Description of Procedure(s): Procedure performed: Transesophageal Echocardiogram with color flow doppler, pulsed wave doppler and continuous wave doppler, moderate conscious sedation Moderate conscious sedation: Moderate conscious sedation was supplied with direct supervision of myself using Versed and Fentanyl. Complications: none Indications: TIA PROCEDURE: After the risks, benefits and alternatives of the above mentioned procedure was explained in detail with the patient, informed consent was obtained. Patient was brought to the lab in a fasting state. Patient was given IV Versed and Fentanyl for sedation. The throat was sprayed with Hurricane to anesthetize the throat. There was some mild difficulty advancing the RADHA probe with patient's history of esophageal stricture however was able to be easily advanced with rotation and twisting of the probe. A lubricated Omni probe was then introduced into the esophagus and stomach and multiple views were obtained. 2D echo with color flow doppler, pulsed wave doppler and continuous wave doppler was utilized. Agitated saline bubbles were injected to assess for any intra-atrial shunt. The probe was then removed. Patient tolerated the procedure well. Patient was transferred to the post procedure area in stable and satisfactory condition. FINDINGS: 1. There is a TAVR device in place with no aortic stenosis and no aortic insufficiency, normal function. 2. The mitral valve appears be normal with mild regurgitation. 3. Tricuspid valve appears to be normal. 4. The interatrial septum is intact. No evidence of PFO. 5. Left atrial appendage has an Amulet device which is well seated with no leak. No thrombus. 6. Left ventricular EF 55% 7. 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 Recommend CTA if clinically indicated.
--- NOTE | 2024-07-14 13:30 | CT ---
EXAMINATION TYPE: CT angio head neck CT DLP: 1354.0 mGycm, Automated exposure control for dose reduction was used. DATE OF EXAM: 07/14/2024 1:16 PM COMPARISON: CT brain 12/18/2023. CLINICAL INDICATION:Male, 83 years old with history of TIA; PHH, R/O Descending Aorta Dissection and TIA post RADHA. TECHNIQUE: Axially acquired helical CT angiogram of the head and neck was obtained with contrast util izing 75 cc of Isovue-370 administered intravenously. Axial images are supplemented with 3D reconstru ctions which were post-processed at an independent workstation. NASCET criteria used. FINDINGS: CTA HEAD: No evidence of acute intracranial hemorrhage, mass effect, or midline shift. The ventricles, sulci, a nd cisterns are unremarkable. Bilateral aphakia with scleral calcifications. Remote injury to the par ietal lobe with encephalomalacia identified. Scattered regions of hypoattenuation around the perivent ricular white matter. Nonspecific right basal glenoid calcification. Right parietal wong hole. The visualized portions of the internal carotid arteries, middle cerebral arteries, anterior cerebral arteries, and posterior cerebral arteries are patent. The basilar and vertebral arteries are patent. CTA NECK: Right Carotid System: The common carotid artery and external carotid artery are patent. Moderate atherosclerotic calcificat ion at the carotid bifurcation. Approximately 80 % stenosis of the origin of the internal carotid art elena secondary to calcified plaque.. The remaining portions of the internal carotid artery demonstrate normal size without significant narrowing. Left Carotid System: The common carotid artery and external carotid artery are patent. Moderate atherosclerotic calcificat ion at the carotid bifurcation. Approximately 50 % stenosis of the origin of the internal carotid art elena secondary to calcified plaque.. The remaining portions of the internal carotid artery demonstrate normal size without significant narrowing. Vertebral arteries are patent without evidence hemodynamically significant stenosis. There is a three-vessel aortic arch. Mild atherosclerotic calcification of the aorta and its branches . The origins of the great vessels are patent. No evidence of hemodynamically significant stenosis. Patulous air-filled esophagus. Thyroid is surgically absent. Degenerative changes of the cervical spi ne. IMPRESSION: 1. Approximately 80% stenosis of the origin of the right internal carotid artery and 50% stenosis at the origin of the left internal carotid artery secondary to calcified plaque. 2. No evidence of high-grade stenosis or intracranial aneurysm. 3. 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 [facility], , 07/14/2024 1:27 PM
--- NOTE | 2024-07-14 13:42 | CT ---
EXAMINATION TYPE: CT angio thor/abd pel aorta CT DLP: 1393.40 mGycm, Automated exposure control for dose reduction was used. DATE OF EXAM: 07/14/2024 1:14 PM COMPARISON: CT urogram 12/25/2021, CT chest 07/23/2021, CT abdomen pelvis 05/21/2021. CLINICAL INDICATION:Male, 83 years old with history of R/O Descending Aorta Dissection; PHH, R/O Desc ending Aorta Dissection and TIA post RADHA. TECHNIQUE: Dissection protocol: Multiple axial CT images of the chest, abdomen, and pelvis were obtai pablo prior and to the administration of IV contrast. 3-D reformats and maximum intensity projection fo rmat were performed on a separate workstation. Then the abdomen was scanned after administration of 1 00 cc of Isovue 370 IV contrast. 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 Mild to moderate atheros clerotic calcification of the aorta and its branches. Stable ectasia of the infrarenal abdominal aort a measuring up to 2.5 cm. The thoracic aorta is normal in course and caliber. There is no evidence of aortic dissection, aneurysm or acute aortic injury. Great arch vessels patent and normal in course a nd caliber. PULMONARY ARTERIAL VASCULATURE: Normal caliber. No evidence of filling defect to suggest pulmonary em bolus. VENOUS SYSTEM: Unremarkable. Lungs/pleura: No pleural effusion or pneumothorax. Bibasilar dependent subsegmental atelectasis. Cecille pheral left upper lobe calcified granuloma. Mild centrilobular emphysematous changes. No focal consol idation. Scattered peripheral reticular fibrotic changes. Heart: Mildly enlarged. No pericardial effusion. Severe coronary artery calcifications. Left atrial a ppendage occlusion device. Mediastinum: No gross evidence of adenopathy. Lower Neck: No significant findings. Abdomen: Liver: A few scattered subcentimeter hypodense foci which are 2 smaller catheters but likely represen t cysts. Gallbladder and Bile ducts: Postcholecystectomy changes. No biliary ductal dilatation. Pancreas: Unremarkable. Spleen: Stable peripheral calcified lesion within the spleen measuring 2.7 cm. Adrenal glands: Unremarkable. Kidneys and Ureters: No hydronephrosis. Bilateral renal cysts identified with largest involving super ior pole of the right kidney measuring 5.4 cm. Left superior pole peripherally calcified stable lesio n measuring up to 2.2 cm. Nonobstructive punctate left renal calculus. 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 Distal colonic diverticulosis without evidence for acute diverticulitis. Mild colonic stool burden within the right colon. No evidence of bowel obstruction. Peritoneum: No evidence of pneumoperitoneum, free fluid, or adenopathy. Bladder: Unremarkable. Reproductive: Prostate calcifications.. Abdominal wall/soft tissues: Unremarkable. Musculoskeletal: The osseous structures appear intact. Stable sclerosis involving the left proximal f emur. Multilevel degenerative changes of the visualized spine. Remote right-sided rib fractures. IMPRESSION: 1. No evidence for aortic dissection. Infrarenal abdominal aortic ectasia measuring up to 2.[address]surgical changes of the aortic valve. 2. Nonobstructive left renal calculus. 3. Bilateral renal cysts are stable with stable benign-appearing peripherally calcified left upper po le cystic lesion. 4. Stable benign-appearing peripherally calcified splenic lesion. 5. 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 6. Colonic diverticulosis. 7. 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 [facility], , 07/14/2024 1:40 PM
[2024-07-14 17:01] VITALS: BP 136/67
== END ==
LOC: CATHCVL 09:17
PROVIDERS: ATTEND Internal Medicine
DX: I48.3 Typical atrial flutter
CPT/HCPCS: 70496; 70498; 71275; 74174; 80048; 93312

== ENCOUNTER → 2025-03-25 | Outpatient (CLI) | payer MEDICARE ==
[2025-03-25 09:55] LABS: African American GFR (CKD) >90 (>60 ml/min/1.73 sqM); Blood Urea Nitrogen 18 mg/dL (9-20); Non-African American GFR(CKD) 79 (>60 ml/min/1.73 sqM)
--- NOTE | 2025-03-30 10:41 | CT ---
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 Reconstructed images are reviewed on the computer in the coronal plane. CONTRAST: 100 ml mL of Isovue 300. Study performed with Oral Contrast DLP: 457.6 mGycm, Automated exposure control for dose reduction was used. FINDINGS: Limited CT sections are obtained the lung bases. Emphysematous changes are present. No suspicious in filtrates or nodules.. Gastric pull-through is evident. CT ABDOMEN: Liver: Multiple scattered small hypodensities within the liver, better visualized on current examinat ion. Additional evaluation with ultrasound Spleen: There is a round calcification within the spleen. This measures 3.0 cm. Previous provided jose cruz surement of 2.7 cm. Pancreas: There is a 0.7 cm hypodensity within the atrophic body of the pancreas. Example image serie s 3 image 16. Additional workup is recommended. Adrenal glands: The adrenal glands are normal. Gallbladder: Normal Kidneys: No masses are evident. No hydronephrosis is present. There is a 5.5 cm cyst superior pole right kidney. There is a 2 cm cyst superior posterior left kidney with some wall calcification. This was present previously. There is a 1.5 cm cyst anterior lower pole right kidney. Punctate nonobstruct ing renal stone in the superior pole left kidney. Delayed images were obtained through the kidneys, which remain unremarkable. Aorta: Vascular calcification is within the aorta. Inferior vena cava: Normal. CT PELVIS: Loops of bowel within the abdomen and pelvis are normal. There is a large fecal bolus in the rectum. Correlate for fecal impaction. There are loops of bowel which are incompletely distended or lack o ral contrast limiting their evaluation. Appendix: Not identified. No dilated tubular structure or inflammatory changes evident. Urinary bladder: Diffuse urinary bladder wall thickening is present. Genitourinary structures: Prostate appears normal Osseous structures: No suspicious lytic or sclerotic lesions. IMPRESSION: 1. Gastric pull-through. 2. Multiple small hypodense lesions within the liver better visualized on the current examination. Ul trasound could confirm simple cysts. 3. Pancreatic cyst measuring approximately 0.7 cm within the body the pancreas better visualized on t he current examination ultrasound reevaluate this finding. 4. Diffuse urinary bladder wall thickening, an interval change. Additional workup recommended [facility], , 03/30/2025 10:38 AM
== END | disposition home or self-care (01) ==
LOC: RADCTMAIN 09:21
PROVIDERS: ATTEND Internal Medicine Gastroenterology
DX: K86.2 Cyst of pancreas (principal); K76.89 Other specified diseases of liver; N32.89 Other specified disorders of bladder
CPT/HCPCS: 82565; 84520; 74177; 36415; Q9967